=== PATIENT | male | born 1990 | race Caucasian/White ===

== ENCOUNTER 2020-09-10 11:14 | Outpatient (REF) | payer MEDICAID, SELFPAY | END 2020-09-10 11:15 | disposition home or self-care (01) | LOC: HO.LAB 11:14 | PROVIDERS: PCP Internal Medicine; Visit Provider Internal Medicine | DX: Z20.828 Contact with and (suspected) exposure to other viral communicable diseases (principal) | CPT/HCPCS: 87635 ==

== ENCOUNTER 2021-07-07 11:40 | Outpatient (REF) | payer MEDICAID, SELFPAY ==
[2021-07-07 12:18] LABS: COVID-19 Test Negative (Negative); IDNOW Serial# 08D9AD1C
== END 2021-07-07 11:41 | disposition home or self-care (01) ==
LOC: HO.LAB 11:40
PROVIDERS: PCP Internal Medicine; Visit Provider Internal Medicine
DX: Z20.822 Contact with and (suspected) exposure to COVID-19 (principal)
CPT/HCPCS: 36415; 87635; C9803

== ENCOUNTER 2022-03-18 16:13 | Outpatient (REF) | payer MEDICAID, SELFPAY ==
--- NOTE | ~2022-03-18 | CT_ITS ---
EXAMINATION: CT HEAD WITHOUT CONTRAST CLINICAL INFORMATION: Headaches. COMPARISON: CT brain 06/01/2019. TECHNIQUE: Contiguous axial imaging was performed from the skull base to vertex without intravenous administration of contrast. This CT examination was performed using dose optimization techniques as appropriate, variously including the following: *Automated exposure control *Adjustment of mA and/or kV according to patient size (this includes techniques or standardized protocols for targeted exams where dose is matched to indication/reason for exam; i.e. extremities or head) *Use of iterative reconstruction technique DLP: 721 mGy-cm. FINDINGS: There is no evidence of acute intracranial hemorrhage or territorial infarction. No abnormal mass effect or midline shift is seen. Dawn to white matter differentiation is well preserved. No extra-axial fluid collections are identified. The ventricles are normal in size. There is no abnormal attenuation within the brain parenchyma. The osseous structures and soft tissues are normal. The mastoid air cells and visualized portions of the paranasal sinuses are well aerated. CT/CT head/brain wo con IMPRESSION: No acute intracranial process seen.
== END 2022-03-18 16:14 | disposition home or self-care (01) ==
LOC: HO.CT 16:13
PROVIDERS: Visit Provider Internal Medicine
DX: R51.9 Headache, unspecified (principal)
CPT/HCPCS: 70450

== ENCOUNTER 2022-04-14 19:58 | Emergency (ER) | payer MEDICAID, SELFPAY ==
--- NOTE | ~2022-04-14 | XR_ITS ---
EXAMINATION: XR CHEST CLINICAL INFORMATION: Diminished breath sounds COMPARISON: Chest x-ray 05/15/2020 TECHNIQUE: Frontal view of the chest was obtained. 2105 hours FINDINGS: No significant abnormality is noted involving the heart, lungs, mediastinum, bony thorax or soft tissues. XR/XR chest 1V IMPRESSION: Unremarkable examination.
[2022-04-14 20:18] VITALS: PULSE 90; O2SAT 99
[2022-04-14 20:19] VITALS: BP 147/103; PULSE 88; RESP 20; TEMP 37.6; O2SAT 97; BMI 28.5
--- NOTE | 2022-04-14 20:24 | ED.PSYCH ---
HPI - Psych General Chief Complaint: ETOH/Substance Use <NISREEN Chung Last Filed: 04/15/22 01:22> Stated Complaint: substance abuse <NISREEN Chung Last Filed: 04/15/22 01:22> Time Seen by Provider: 04/14/22 20:24 <NISREEN Chung Last Filed: 04/15/22 01:22> Source: patient and EMS <NISREEN Chung Last Filed: 04/15/22 01:22> Mode of arrival: EMS <NISREEN Chung Last Filed: 04/15/22 01:22> Limitations: other (Patient appears to be under the influence of drugs, poor historian) <NISREEN Chung Last Filed: 04/15/22 01:22> History of Present Illness HPI Narrative: 31-year-old male history of polysubstance abuse presenting to the emergency department via ambulance, he tells me that his mother called EMS because he use PCP in cocaine today. He tells me he does did it to get high. He denies any trauma. he tells me he uses drugs occasionally. He denies suicidal and homicidal ideation. Patient denies trauma, head strike, loss of consciousness. Patient also denies chest pain, shortness of breath, fevers, chills, nausea, vomiting, abdominal pain, weakness, headache, dizziness, vision changes, upper respiratory infection. Patient is not seeking detox. He appears to be under the influence of drugs however he is answering questions appropriately. <NISREEN Chung Last Filed: 04/15/22 01:22> Onset (ago): day(s) (1) <NISREEN Chung Last Filed: 04/15/22 01:22> History of same: No <NISREEN Chung Last Filed: 04/15/22 01:22> Relieving factors: none <NISREEN Chung Last Filed: 04/15/22 01:22> Exacerbating factors: none <NISREEN Chung Last Filed: 04/15/22 01:22> Context: recent drug abuse <NISREEN Chung Last Filed: 04/15/22 01:22> Associated psychiatric symptoms: none <NISREEN Chung Last Filed: 04/15/22 01:22> Associated symptoms: denies other symptoms <NISREEN Chung Last Filed: 04/15/22 01:22> Treatments prior to arrival: none <NISREEN Chung Last Filed: 04/15/22 01:22> Related Data Home Medications: Previous Rx's Medication Instructions Recorded albuterol sulfate 90 mcg/actuation 2 inh INHALATION Q4-6H PRN #1 ea 04/15/22 breath activated powder inhaler azithromycin 250 mg tablet See Rx Instructions .ROUTE 04/15/22 .COMPLEX #6 tab prednisone 20 mg tablet 20 mg PO DAILY 5 Days #5 tab 04/15/22 <NISREEN Chung Last Filed: 04/15/22 01:22> Allergies/Adverse Reactions: Allergies Allergy/AdvReac Type Severity Reaction Status Date / Time pollen extracts Allergy Rash Verified 04/14/22 20:16 <NISREEN Chung Last Filed: 04/15/22 01:22> Review of Systems Review of Systems: Constitutional : No Fever, No Chills ENT/Mouth : No sore throat, No Rhinorrhea Eyes: No Eye Pain, No Swelling, No Redness Cardiovascular : No Chest Pain, No SOB Respiratory : No Cough, No Sputum Gastrointestinal : No Nausea, No Vomiting, No Diarrhea, No abdominal Pain Genitourinary : No Dysuria, No Hematuria Musculoskeletal : No joint pain, No Myalgias, No Joint Swelling Skin : No Skin Lesions, No rash Neuro : No Weakness, No Numbness Psych : No Anxiety, No Depression, No SI/HI/AH/VH Heme/Lymph: No Bruising, No Bleeding Endocrine : No Polyuria, No Polydipsia All other systems reviewed and are negative <NISREEN Chung Last Filed: 04/15/22 01:22> Yes all other systems are reviewed and are negative <NISREEN Chung Last Filed: 04/15/22 01:22> [facility] Past Medical History Attestation statement: The following information was validated with the patient. <NISREEN Chung - Last Filed: 04/15/22 01:22> Source: old records reviewed and nursing notes reviewed <NISREEN Chung - Last Filed: 04/15/22 01:22> Social History Social History: Social History Advance Directives: No Advance Directives Information Provided: No <NISREEN Chung - Last Filed: 04/15/22 01:22> Physical Exam Vital Signs: Vital Signs: Last Vital Signs Temp 98.4 F 04/15/22 00:04 Pulse 70 04/15/22 00:04 Resp 16 04/15/22 00:04 BP 139/83 04/15/22 00:04 Pulse Ox 98 04/15/22 00:04 BMI result Body Mass Index 28.5 HTN noted <NISREEN Chung - Last Filed: 04/15/22 01:22> Appearance: Alert.? Oriented X3.? No acute distress.? Head: Normocephalic, atraumatic, no step-offs or deformities Eyes: Pupils equal, round and reactive to light.? Extraocular movements intact. Neck: Normal inspection.? Neck supple.? CVS: Normal heart rate and rhythm.? Pulses normal.? Respiratory: No respiratory distress.? Breath sounds normal.? Abdomen: Soft and nontender.? Skin: Skin warm and dry.? Normal skin color.? Normal skin turgor.? Extremities: No lower extremity edema.? No calf ttp. 5/5 strength to bilateral upper and lower extremities Back: No midline tenderness, no C-spine tenderness, full range of motion Neuro: Oriented X 3.? No motor deficit.? No sensory deficit. CN 2-12 intact . Steady tandem gait with normal coordination, normal [id number]. Normal rapid alternating movements. Negative pronator drift. <NISREEN Chung - Last Filed: 04/15/22 01:22> Course Reevaluation(s) Reevaluation #1: Patient's CBC with slight leukocytosis likely reactive, patient's platelets elevated likely from dehydration. Patient's calcium elevated again consistent with dehydration. Ethanol negative. COVID negative. Chest x-ray is unremarkable. Plan at this time is to hydrate patient and repeat laboratory studies. 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 He says he is fine. Pending repeat laboratory studies , disposition pending improvement. <NISREEN Chung - Last Filed: 04/15/22:22> Time: 00:41 <NISREEN Chung - Last Filed: 04/15/22 01:22> Reevaluation #3: Laboratory study show an elevated white blood cell count, went to speak to patient, who is friend at the bedside, friend encouraging patient to be honest, patient tells me that he has had a non productive cough for a few days. He tells me is not coughing anything up. Patient is COVID negative. At this time he is saturating 100% on room air, no calf tenderness, lungs are clear, PERC negative unlikely that this is PE. Normal CXR, unlikley pna, likely bronchitis. Offered for patient to stay for antibiotics however he does not want to stay at this time. Patient wants to leave. Patient has a safe ride home. He is saturating 98% even after ambulation. Will discharge patient home on a Z-Victoriano, inhaler and steroids advised him to return with new or worsening symptoms. <NISREEN Chung - Last Filed: 04/15/22 01:22> Time: 01:15 <NISREEN Chung - Last Filed: 04/15/22 01:22> MDM - Psych MDM Narrative Medical decision making narrative: 2028 31-year-old male presents status post using PCP and cocaine, his mom called 911 because she was worried about him. Denies SI and HI. Tells me he just did this to get high. Denies medical complaints at this time. PE benign. Neuro exam nonfocal. Cerebellar function intact. Ambulating with steady gait. Alert and oriented x4. No pronator drift. Pupils equal round and reactive to light. Lungs clear. Regular rate and rhythm. Abdomen soft nontender nondistended. Plan- medical clearance then discharge. <NISREEN Chung - Last Filed: 04/15/22 01:22> Medical Records Attestation: I reviewed the patient's medical records. <NISREEN Chung - Last Filed: 04/15/22 01:22> Lab Data Attestation: I reviewed the patient's lab results. <NISREEN Chung - Last Filed: 04/15/22 01:22> Result diagrams: : 04/15/22 00:36 04/15/22 00:36 <NISREEN Chung - Last Filed: 04/15/22 01:22> Labs: Lab Results 04/14/22 04/14/22 04/14/22 Range/Units 20:48 20:48 20:48 WBC 15.3 H (4.8-10.8) X10*3/uL RBC 4.66 (4.60-5.80) X10*6/uL Hgb 14.1 (14.0-18.0) g/dl Hct 42.1 (42.0-52.0) % MCV 90.3 (80.0-98.0) fL MCH 30.3 (27.0-33.0) pg MCHC 33.5 (31.0-36.0) g/dl RDW 14.2 (11.0-16.0) % Plt Count 536 H (160-400) X10*3/uL MPV 9.9 (9.4-12.4) fL Immature Gran % (Auto) 0.3 (0.0-0.4) % Neut % (Auto) 47.8 (45-73) % Lymph % (Auto) 39.6 (20-40) % [place] % (Auto) 7.7 (2-11) % Eos % (Auto) 4.1 H (0-4) % Baso % (Auto) 0.5 (0-2) % Lymph # (Auto) 6.1 H (1.2-4.9) X10*3/uL [place] # (Auto) 1.2 (0.1-1.2) X10*3/uL Eos # (Auto) 0.6 H (0.0-0.4) X10*3/uL Baso # (Auto) 0.1 (0.0-0.2) X10*3/uL Abs Immat Gran (auto) 0.04 H (0.00-0.03) X10*3/uL Absolute Neuts (auto) 7.3 (2.0-8.3) x10*3/uL Absolute Nucleated RBC 0.000 (0.0-0.012) X10*3/uL Nucleated RBC % (auto) 0.0 (0.0-0.2) /100WBC Smear Tech's Comments VERIFIED Sodium 140 (135-145) mmol/L Potassium 4.0 (3.3-5.1) mmol/L Chloride 105 (96-108) mmol/L Carbon Dioxide 26 (22-29) mmol/L Anion Gap 13 (12-20) BUN 10 (9-16) mg/dL Creatinine 0.94 (0.5-1.4) mg/dL Estim Creat Clear Calc 138.8 Estimated GFR > 60 Random Glucose 90 (60-115) mg/dL Calcium 10.3 H (8.4-10.2) mg/dL Magnesium 2.4 (1.6-2.6) mg/dL Total Bilirubin 0.3 (0.0-1.0) mg/dL AST 27 (5-37) U/L ALT 35 (0-40) U/L Alkaline Phosphatase 104 (39-117) U/L Troponin I High Sens (<3.5-35.0) ng/L Total Protein 7.9 (6.5-8.0) g/dL Albumin 4.8 (3.5-5.0) g/dL Urine Color Urine Appearance Urine pH (5.0-8.0) Ur Specific [place] (1.005-1.025) Urine Protein (NEG-TRACE) MG/DL Urine Glucose (UA) (NEG) MG/DL Urine Ketones (NEG) MG/DL Urine Blood (NEG) Urine Nitrite (NEG) Ur Leukocyte Esterase (NEG) Urine RBC (0) /HPF Urine WBC (0-4) /HPF Ur Squamous Epith Cells /LPF Urine Bacteria /LPF Urine Mucus /LPF Urine Opiates Screen (Not Detect) Urine Fentanyl Screen (Not Detect) Ur Barbiturates Screen (Not Detect) Ur Phencyclidine Scrn (Not Detect) Ur Amphetamines Screen (Not Detect) U Benzodiazepines Scrn (Not Detect) Urine Cocaine Screen (Not Detect) U Marijuana (THC) Screen (Not Detect) Ethyl Alcohol mg/dL COVID-19 (CESARIO) Negative (Negative) COVID-19 Clin Com See Note 04/14/22 04/14/22 04/14/22 Range/Units 20:48 20:48 22:12 WBC (4.8-10.8) X10*3/uL RBC (4.60-5.80) X10*6/uL Hgb (14.0-18.0) g/dl Hct (42.0-52.0) % MCV (80.0-98.0) fL MCH (27.0-33.0) pg MCHC (31.0-36.0) g/dl RDW (11.0-16.0) % Plt Count (160-400) X10*3/uL MPV (9.4-12.4) fL Immature Gran % (Auto) (0.0-0.4) % Neut % (Auto) (45-73) % Lymph % (Auto) (20-40) % [place] % (Auto) (2-11) % Eos % (Auto) (0-4) % Baso % (Auto) (0-2) % Lymph # (Auto) (1.2-4.9) X10*3/uL [place] # (Auto) (0.1-1.2) X10*3/uL Eos # (Auto) (0.0-0.4) X10*3/uL Baso # (Auto) (0.0-0.2) X10*3/uL Abs Immat Gran (auto) (0.00-0.03) X10*3/uL Absolute Neuts (auto) (2.0-8.3) x10*3/uL Absolute Nucleated RBC (0.0-0.012) X10*3/uL Nucleated RBC % (auto) (0.0-0.2) /100WBC Smear Tech's Comments Sodium (135-145) mmol/L Potassium (3.3-5.1) mmol/L Chloride (96-108) mmol/L Carbon Dioxide (22-29) mmol/L Anion Gap (12-20) BUN (9-16) mg/dL Creatinine (0.5-1.4) mg/dL Estim Creat Clear Calc Estimated GFR Random Glucose (60-115) mg/dL Calcium (8.4-10.2) mg/dL Magnesium (1.6-2.6) mg/dL Total Bilirubin (0.0-1.0) mg/dL AST (5-37) U/L ALT (0-40) U/L Alkaline Phosphatase (39-117) U/L Troponin I High Sens < 3.5 (<3.5-35.0) ng/L Total Protein (6.5-8.0) g/dL Albumin (3.5-5.0) g/dL Urine Color YELLOW Urine Appearance CLEAR Urine pH 6.0 (5.0-8.0) Ur Specific [place] >= 1.030 H (1.005-1.025) Urine Protein 1+ H (NEG-TRACE) MG/DL Urine Glucose (UA) NEG (NEG) MG/DL Urine Ketones NEG (NEG) MG/DL Urine Blood 2+ H (NEG) Urine Nitrite NEG (NEG) Ur Leukocyte Esterase NEG (NEG) Urine RBC 10-14 H (0) /HPF Urine WBC 1-4 (0-4) /HPF Ur Squamous Epith Cells TRACE /LPF Urine Bacteria TRACE /LPF Urine Mucus 1+ /LPF Urine Opiates Screen (Not Detect) Urine Fentanyl Screen (Not Detect) Ur Barbiturates Screen (Not Detect) Ur Phencyclidine Scrn (Not Detect) Ur Amphetamines Screen (Not Detect) U Benzodiazepines Scrn (Not Detect) Urine Cocaine Screen (Not Detect) U Marijuana (THC) Screen (Not Detect) Ethyl Alcohol < 10 mg/dL COVID-19 (CESARIO) (Negative) COVID-19 Clin Com 04/14/22 04/15/22 04/15/22 Range/Units 22:12 00:36 00:36 WBC 16.2 H (4.8-10.8) X10*3/uL RBC 4.30 L (4.60-5.80) X10*6/uL Hgb 12.9 L (14.0-18.0) g/dl Hct 39.7 L (42.0-52.0) % MCV 92.3 (80.0-98.0) fL MCH 30.0 (27.0-33.0) pg MCHC 32.5 (31.0-36.0) g/dl RDW 14.3 (11.0-16.0) % Plt Count 473 H (160-400) X10*3/uL MPV 9.6 (9.4-12.4) fL Immature Gran % (Auto) 0.6 H (0.0-0.4) % Neut % (Auto) 51.2 (45-73) % Lymph % (Auto) 36.6 (20-40) % [place] % (Auto) 6.9 (2-11) % Eos % (Auto) 4.1 H (0-4) % Baso % (Auto) 0.6 (0-2) % Lymph # (Auto) 5.9 H (1.2-4.9) X10*3/uL [place] # (Auto) 1.1 (0.1-1.2) X10*3/uL Eos # (Auto) 0.7 H (0.0-0.4) X10*3/uL Baso # (Auto) 0.1 (0.0-0.2) X10*3/uL Abs Immat Gran (auto) 0.10 H (0.00-0.03) X10*3/uL Absolute Neuts (auto) 8.3 (2.0-8.3) x10*3/uL Absolute Nucleated RBC 0.000 (0.0-0.012) X10*3/uL Nucleated RBC % (auto) 0.0 (0.0-0.2) /100WBC Smear Tech's Comments Sodium 140 (135-145) mmol/L Potassium 4.3 (3.3-5.1) mmol/L Chloride 108 (96-108) mmol/L Carbon Dioxide 23 (22-29) mmol/L Anion Gap 13 (12-20) BUN 9 (9-16) mg/dL Creatinine 0.91 (0.5-1.4) mg/dL Estim Creat Clear Calc 143.4 Estimated GFR > 60 Random Glucose 111 (60-115) mg/dL Calcium 9.3 D (8.4-10.2) mg/dL Magnesium (1.6-2.6) mg/dL Total Bilirubin 0.4 (0.0-1.0) mg/dL AST 24 (5-37) U/L ALT 31 (0-40) U/L Alkaline Phosphatase 94 (39-117) U/L Troponin I High Sens (<3.5-35.0) ng/L Total Protein 6.8 (6.5-8.0) g/dL Albumin 4.2 (3.5-5.0) g/dL Urine Color Urine Appearance Urine pH (5.0-8.0) Ur Specific [place] (1.005-1.025) Urine Protein (NEG-TRACE) MG/DL Urine Glucose (UA) (NEG) MG/DL Urine Ketones (NEG) MG/DL Urine Blood (NEG) Urine Nitrite (NEG) Ur Leukocyte Esterase (NEG) Urine RBC (0) /HPF Urine WBC (0-4) /HPF Ur Squamous Epith Cells /LPF Urine Bacteria /LPF Urine Mucus /LPF Urine Opiates Screen Not Detected (Not Detect) Urine Fentanyl Screen Not Detected (Not Detect) Ur Barbiturates Screen Not Detected (Not Detect) Ur Phencyclidine Scrn POSITIVE H (Not Detect) Ur Amphetamines Screen Not Detected (Not Detect) U Benzodiazepines Scrn Not Detected (Not Detect) Urine Cocaine Screen POSITIVE H (Not Detect) U Marijuana (THC) Screen POSITIVE H (Not Detect) Ethyl Alcohol mg/dL COVID-19 (CESARIO) (Negative) COVID-19 Clin Com <NISREEN Chung - Last Filed: 04/15/22 01:22> Critical Care Time Critical Care Time Critical Care Time: No <NISREEN Chung Last Filed: 04/15/22 01:22> Discharge Plan Discharge Clinical Impression: Bronchitis, Cocaine abuse, PCP (phencyclidine) abuse <NISREEN Chung Last Filed: 04/15/22 01:22> Patient Disposition: Home, Self-Care <NISREEN Chung Last Filed: 04/15/22 01:22> Instructions: Cocaine Abuse (ED), Polysubstance Abuse (ED) <NISREEN Chung Last Filed: 04/15/22 01:22> Additional Instructions: Take your medications as prescribed. If you were prescribed antibiotics today, it is important that you take your medication to their entirety, do not skip any doses, do not finish them early. Follow-up with your primary care provider this week. Return to the emergency department with new or worsening symptoms. Such as fevers, chills, chest pain, shortness of breath, nausea, vomiting, dizziness, headache, vision changes, lethargy, suicidal ideation, homicidal ideation, anxiety, depression. In case of emergency call 911 We offered you detox however you refuse. Please stop using drugs as they can be very dangerous and aching kill you. We did provide you with outpatient detox/resources. Please read these papers we gave you, and consider calling to get help. I did attach [facility] number below. Be upset antibiotics your pharmacy, please take this as indicated, if you develop new or worsening symptoms he need to be re-evaluated by medical malpractice paralegal soon as possible. <NISREEN Chung - Last Filed: 04/15/22 01:22> Prescriptions: New albuterol sulfate 90 mcg/actuation aerosol powdr breath activated 2 inh inhalation Q4-6H PRN (Reason: shortness of breath or wheezing) Qty: 1 0RF azithromycin 250 mg tablet See Rx Instructions .ROUTE .COMPLEX Qty: 6 0RF Rx Instructions: For 250 mg dose pack: take 500 mg today (day 1), then 250 mg for 4 days (days 2-5) prednisone 20 mg tablet 20 mg PO DAILY 5 Days Qty: 5 0RF <NISREEN Chung - Last Filed: 04/15/22 01:22> [facility]errals[facility] [Provider Group] - 2 days <NISREEN Chung - Last Filed: 04/15/22 01:22> Stand Alone Forms: Work/School Release <NISREEN Chung - Last Filed: 04/15/22 01:22> Interventions: ED Discharge Assessment Last Done: 04/15/22 01:37 <NISREEN Chung Last Filed: 04/15/22 01:22> Discharge Date/Time: 04/15/22 01:53 <NISREEN Chung - Last Filed: 04/15/22 01:22>
--- NOTE | 2022-04-14 20:29 | ECG_ITS ---
Test Reason : PALPATATIONS Blood Pressure : / mmHG Vent. Rate : 065 BPM Atrial Rate : 065 BPM P-R Int : 162 ms QRS Dur : 086 ms QT Int : 384 ms P-R-T Axes : 027 038 033 degrees QTc Int : 399 ms Normal sinus rhythm Normal ECG When compared with ECG of 23-APR-2014 02:17, No significant change was found Referred By: Hillary Bryant Electronically Signed By:THAO LINARES MD
[2022-04-14 21:03] LABS: Basophils Absolute Auto 0.1 X10*3/uL (0.0-0.2); Basophils Percent Auto 0.5 % (0-2); Eosinophils Absolute Auto 0.6 X10*3/uL (0.0-0.4); Eosinophils Percent Auto 4.1 % (0-4); Hematocrit 42.1 % (42.0-52.0); Hemoglobin 14.1 g/dl (14.0-18.0); Imm Gran Abs Auto 0.04 X10*3/uL (0.00-0.03); Imm Gran Pct Auto 0.3 % (0.0-0.4); Lymphocytes Percent Auto 39.6 % (20-40); MANUAL DIFF FLAG SCAN; Mean Corpuscular HGB Conc 33.5 g/dl (31.0-36.0); Mean Corpuscular Hemoglobin 30.3 pg (27.0-33.0); Mean Corpuscular Volume 90.3 fL (80.0-98.0); Mean Platelet Volume 9.9 fL (9.4-12.4); Monocytes Absolute Auto 1.2 X10*3/uL (0.1-1.2); Monocytes Percent Auto 7.7 % (2-11); Neutrophils Absolute Auto 7.3 x10*3/uL (2.0-8.3); Neutrophils Percent Auto 47.8 % (45-73); Platelet Count 536 X10*3/uL (160-400); Red Blood Count 4.66 X10*6/uL (4.60-5.80); Red Cell Distribution Width 14.2 % (11.0-16.0); SCAN SMEAR FLAG 1; White Blood Count 15.3 X10*3/uL (4.8-10.8)
[2022-04-14 21:05] LABS: Lymphocytes Absolute Auto 6.1 X10*3/uL (1.2-4.9)
[2022-04-14 21:10] LABS: COVID-19 Test Negative (Negative); Ethanol < 10 mg/dL; IDNOW Serial# 16C4AD1C
[2022-04-14 21:13] LABS: Alanine Aminotransferase 35 U/L (0-40); Albumin Level 4.8 g/dL (3.5-5.0); Alkaline Phosphatase 104 U/L (39-117); Anion Gap 13 (12-20); Aspartate Amino Transferase 27 U/L (5-37); Bilirubin Total 0.3 mg/dL (0.0-1.0); Blood Urea Nitrogen 10 mg/dL (9-16); Calcium 10.3 mg/dL (8.4-10.2); Carbon Dioxide 26 mmol/L (22-29); Chloride 105 mmol/L (96-108); Creatinine Clr Calc Pharmacy 138.8; Estimated Glomerular Filt Rate > 60; Glucose Random 90 mg/dL (60-115); Magnesium 2.4 mg/dL (1.6-2.6); Sodium 140 mmol/L (135-145); Total Protein 7.9 g/dL (6.5-8.0)
[2022-04-14 21:19] LABS: Troponin-I High Sensitivity < 3.5 ng/L (<3.5-35.0)
[2022-04-14 21:28] LABS: SLIDE REVIEW VERIFIED
--- NOTE | 2022-04-14 21:41 | MHC.RECOVSUP ---
? Reason for consult:Recovery Support o Current location:[address] o Identified substance use concern:PCP, Cocaine - Support ? Intervention: o Community resources provided ? Plan: o o Patient to follow up with [facility] after discharge ? Additional information:Patient denies using anything, patient has not given a urine specimen, patient has asked to leave. patient did not want to engage in any conversation except asking to leave.
[2022-04-14 22:00] VITALS: BP 138/85; PULSE 62; RESP 16; TEMP 36.6; O2SAT 98
[2022-04-14] MEDS: 0.9 % Sodium Chloride 1,000 ML 999 ML IV ×2 (22:08→23:03)
[2022-04-14 22:17] LABS: Appearance Urine CLEAR; Color Urine YELLOW; Glucose Urine UA NEG (NEG); Leukocyte Esterase Urine NEG (NEG); Nitrite Urine NEG (NEG); Specific Gravity - Urine >= 1.030 (1.005-1.025); UACC Culture Trigger NO; Urine Blood 2+ (NEG); Urine Ketones NEG (NEG); Urine Protein 1+ MG/DL (NEG-TRACE)
[2022-04-14 22:28] LABS: Bacteria Urine TRACE /LPF; Mucus Urine 1+ /LPF; Squamous Epithelial Cell Urine TRACE /LPF
[2022-04-14 22:31] LABS: Amphetamine Screen Urine Not Detected (Not Detect); Barbiturates, Urine Not Detected (Not Detect); Benzodiazepines Screen Urine Not Detected (Not Detect); Cannabinoid Screen Urine POSITIVE (Not Detect); Cocaine Screen Urine POSITIVE (Not Detect); Fentanyl, urine Not Detected (Not Detect); Opiate Screen Urine Not Detected (Not Detect); Phencyclidine Screen Urine POSITIVE (Not Detect)
[2022-04-15 00:04] VITALS: BP 139/83; PULSE 70; RESP 16; TEMP 36.9; O2SAT 98
[2022-04-15 00:44] LABS: Basophils Absolute Auto 0.1 X10*3/uL (0.0-0.2); Basophils Percent Auto 0.6 % (0-2); Eosinophils Absolute Auto 0.7 X10*3/uL (0.0-0.4); Eosinophils Percent Auto 4.1 % (0-4); Hematocrit 39.7 % (42.0-52.0); Hemoglobin 12.9 g/dl (14.0-18.0); Imm Gran Pct Auto 0.6 % (0.0-0.4); Lymphocytes Absolute Auto 5.9 X10*3/uL (1.2-4.9); Lymphocytes Percent Auto 36.6 % (20-40); MANUAL DIFF FLAG SCAN; Mean Corpuscular HGB Conc 32.5 g/dl (31.0-36.0); Mean Corpuscular Volume 92.3 fL (80.0-98.0); Mean Platelet Volume 9.6 fL (9.4-12.4); Monocytes Absolute Auto 1.1 X10*3/uL (0.1-1.2); Monocytes Percent Auto 6.9 % (2-11); Neutrophils Absolute Auto 8.3 x10*3/uL (2.0-8.3); Neutrophils Percent Auto 51.2 % (45-73); Platelet Count 473 X10*3/uL (160-400); Red Cell Distribution Width 14.3 % (11.0-16.0); SCAN SMEAR FLAG 1; White Blood Count 16.2 X10*3/uL (4.8-10.8)
[2022-04-15 01:09] LABS: Alanine Aminotransferase 31 U/L (0-40); Albumin Level 4.2 g/dL (3.5-5.0); Alkaline Phosphatase 94 U/L (39-117); Anion Gap 13 (12-20); Aspartate Amino Transferase 24 U/L (5-37); Bilirubin Total 0.4 mg/dL (0.0-1.0); Blood Urea Nitrogen 9 mg/dL (9-16); Calcium 9.3 mg/dL (8.4-10.2); Carbon Dioxide 23 mmol/L (22-29); Chloride 108 mmol/L (96-108); Creatinine Clr Calc Pharmacy 143.4; Estimated Glomerular Filt Rate > 60; Glucose Random 111 mg/dL (60-115); Potassium 4.3 mmol/L (3.3-5.1); Sodium 140 mmol/L (135-145); Total Protein 6.8 g/dL (6.5-8.0)
== END 2022-04-15 01:53 | disposition home or self-care (01) ==
PROVIDERS: Physician Assistant; Emergency Provider Emergency Medicine
DX: F14.10 Cocaine abuse, uncomplicated (principal); F16.10 Hallucinogen abuse, uncomplicated; J40 Bronchitis, not specified as acute or chronic; R00.2 Palpitations; Z20.822 Contact with and (suspected) exposure to COVID-19
CPT/HCPCS: 36415; 71045; 80053; 80307; 81001; 82077; 83735; 84484; 85025; 87635; 93005; 96360; 99284

== ENCOUNTER 2023-05-24 | Outpatient (REF) | payer MEDICAID, SELFPAY ==
[2023-05-24 11:31] LABS: Basophils Absolute Auto 0.1 X10*3/uL (0.0-0.2); Basophils Percent Auto 0.5 % (0-2); Eosinophils Absolute Auto 0.4 X10*3/uL (0.0-0.4); Eosinophils Percent Auto 2.6 % (0-4); Hematocrit 44.7 % (42.0-52.0); Hemoglobin 14.6 g/dl (14.0-18.0); Imm Gran Abs Auto 0.04 X10*3/uL (0.00-0.03); Imm Gran Pct Auto 0.3 % (0.0-0.4); Lymphocytes Percent Auto 43.2 % (20-40); MANUAL DIFF FLAG SCAN; Mean Corpuscular HGB Conc 32.7 g/dl (31.0-36.0); Mean Corpuscular Hemoglobin 28.6 pg (27.0-33.0); Mean Corpuscular Volume 87.6 fL (80.0-98.0); Mean Platelet Volume 10.7 fL (9.4-12.4); Monocytes Absolute Auto 1.1 X10*3/uL (0.1-1.2); Monocytes Percent Auto 8.1 % (2-11); Neutrophils Absolute Auto 6.4 x10*3/uL (2.0-8.3); Neutrophils Percent Auto 45.3 % (45-73); Platelet Count 577 X10*3/uL (160-400); Red Cell Distribution Width 13.8 % (11.0-16.0); SCAN SMEAR FLAG 1; White Blood Count 14.2 X10*3/uL (4.8-10.8)
[2023-05-24 11:32] LABS: Lymphocytes Absolute Auto 6.1 X10*3/uL (1.2-4.9)
[2023-05-24 12:14] LABS: SLIDE REVIEW VERIFIED
[2023-05-24 12:22] LABS: Alanine Aminotransferase 100 U/L (0-40); Albumin Level 4.8 g/dL (3.5-5.0); Alkaline Phosphatase 97 U/L (39-117); Anion Gap 16 (12-20); Aspartate Amino Transferase 44 U/L (5-37); Bilirubin Total 0.4 mg/dL (0.0-1.0); Blood Urea Nitrogen 11 mg/dL (9-16); Calcium 10.2 mg/dL (8.4-10.2); Carbon Dioxide 18 mmol/L (22-29); Chloride 110 mmol/L (96-108); Cholesterol 263 mg/dL; Estimated Glomerular Filt Rate > 60; Glucose Random 102 mg/dL (60-115); HDL Cholesterol 33 mg/dL; LDL Cholesterol Calculated 189 mg/dl; Potassium 3.9 mmol/L (3.3-5.1); Sodium 140 mmol/L (135-145); Total Protein 8.2 g/dL (6.5-8.0); Triglycerides 209 mg/dL
[2023-05-24 12:36] LABS: Syphilis Screen Nonreactive (Nonreactive)
[2023-05-26 20:53] LABS: TS Negative Control Passed; TS Panel A 1; TS Panel B 0; TS Positive Control Passed; TSpotTB Negative (Negative)
[2023-05-27 09:48] LABS: Absolute CD3 Count 3882 cells/uL (840-3060); Absolute CD4 Count 1893 cells/uL (490-1740); Absolute CD8 Count 2048 cells/uL (180-1170); Absolute Lymphocytes 5679 cells/uL (850-3900); CD4 CD8 Ratio 0.92 (0.86-5.00); Percent CD3 Cells 68 % (57-85); Percent CD4 Cells 33 % (30-61); Percent CD8 Cells 36 % (12-42)
[2023-05-27 12:44] LABS: HIV RNA PCR Qn Copies NOT DETECTED copies/mL (NOT DETECTED); HIV RNA PCR Qn Log Copies NOT DETECTED (NOT DETECTED)
== END 2023-05-24 00:01 | disposition home or self-care (01) ==
LOC: HO.HHCL
PROVIDERS: Visit Provider Internal Medicine
DX: Z21 Asymptomatic human immunodeficiency virus [HIV] infection status (principal)
CPT/HCPCS: 36415; 80053; 80061; 85025; 86359; 86360; 86481; 86780; 87536

== ENCOUNTER 2023-06-01 12:27 | Outpatient (REF) | payer MEDICAID, SELFPAY ==
[2023-06-01 13:33] LABS: MANUAL DIFF FLAG NO
[2023-06-01 13:54] LABS: Basophils Absolute Auto 0.1 X10*3/uL (0.0-0.2); Basophils Percent Auto 0.4 % (0-2); Eosinophils Absolute Auto 0.2 X10*3/uL (0.0-0.4); Eosinophils Percent Auto 1.2 % (0-4); Hemoglobin 14.4 g/dl (14.0-18.0); Imm Gran Abs Auto 0.06 X10*3/uL (0.00-0.03); Imm Gran Pct Auto 0.4 % (0.0-0.4); Lymphocytes Absolute Auto 4.6 X10*3/uL (1.2-4.9); Lymphocytes Percent Auto 28.4 % (20-40); Mean Corpuscular HGB Conc 32.7 g/dl (31.0-36.0); Mean Corpuscular Hemoglobin 28.7 pg (27.0-33.0); Mean Corpuscular Volume 87.6 fL (80.0-98.0); Mean Platelet Volume 10.6 fL (9.4-12.4); Monocytes Percent Auto 6.1 % (2-11); Neutrophils Absolute Auto 10.2 x10*3/uL (2.0-8.3); Neutrophils Percent Auto 63.5 % (45-73); Platelet Count 566 X10*3/uL (160-400); Red Blood Count 5.02 X10*6/uL (4.60-5.80); White Blood Count 16.1 X10*3/uL (4.8-10.8)
[2023-06-01 14:41] LABS: Cholesterol 251 mg/dL; HDL Cholesterol 37 mg/dL; LDL Cholesterol Calculated 181 mg/dl; Triglycerides 166 mg/dL
[2023-06-01 14:42] LABS: Alanine Aminotransferase 129 U/L (0-40); Alkaline Phosphatase 94 U/L (39-117); Anion Gap 15 (12-20); Aspartate Amino Transferase 52 U/L (5-37); Bilirubin Total 0.3 mg/dL (0.0-1.0); Blood Urea Nitrogen 12 mg/dL (9-16); Calcium 10.3 mg/dL (8.4-10.2); Carbon Dioxide 23 mmol/L (22-29); Chloride 102 mmol/L (96-108); Estimated Glomerular Filt Rate > 60; Glucose Random 94 mg/dL (60-115); Potassium 3.7 mmol/L (3.3-5.1); Sodium 136 mmol/L (135-145); Total Protein 8.4 g/dL (6.5-8.0)
[2023-06-01 15:24] LABS: Reflex LDLD? No
[2023-06-02 08:26] LABS: Syphilis Screen Nonreactive (Nonreactive)
[2023-06-03 15:03] LABS: HIV RNA PCR Qn Copies NOT DETECTED copies/mL (NOT DETECTED); HIV RNA PCR Qn Log Copies NOT DETECTED (NOT DETECTED)
[2023-06-04 00:44] LABS: TS Negative Control Passed; TS Panel A 0; TS Panel B 1; TS Positive Control Passed; TSpotTB Negative (Negative)
[2023-06-05 13:19] LABS: Absolute CD3 Count 2843 cells/uL (840-3060); Absolute CD4 Count 1538 cells/uL (490-1740); Absolute CD8 Count 1389 cells/uL (180-1170); Absolute Lymphocytes 4352 cells/uL (850-3900); CD4 CD8 Ratio 1.11 (0.86-5.00); Percent CD3 Cells 65 % (57-85); Percent CD4 Cells 35 % (30-61); Percent CD8 Cells 32 % (12-42)
== END 2023-06-01 12:28 | disposition home or self-care (01) ==
LOC: HO.HHCL 12:27
PROVIDERS: Visit Provider Internal Medicine
DX: Z21 Asymptomatic human immunodeficiency virus [HIV] infection status (principal)
CPT/HCPCS: 36415; 80053; 80061; 85025; 86359; 86360; 86481; 86592; 86780; 87536

== ENCOUNTER 2023-10-24 11:08 | Outpatient (REF) | payer MEDICAID, SELFPAY ==
[2023-10-24 13:58] LABS: Basophils Absolute Auto 0.1 X10*3/uL (0.0-0.2); Basophils Percent Auto 0.6 % (0-2); Eosinophils Absolute Auto 0.3 X10*3/uL (0.0-0.4); Eosinophils Percent Auto 2.5 % (0-4); Hematocrit 45.1 % (42.0-52.0); Hemoglobin 14.6 g/dl (14.0-18.0); Imm Gran Abs Auto 0.06 X10*3/uL (0.00-0.03); Imm Gran Pct Auto 0.5 % (0.0-0.4); Lymphocytes Absolute Auto 5.9 X10*3/uL (1.2-4.9); Lymphocytes Percent Auto 46.6 % (20-40); MANUAL DIFF FLAG SCAN; Mean Corpuscular HGB Conc 32.4 g/dl (31.0-36.0); Mean Corpuscular Hemoglobin 28.5 pg (27.0-33.0); Mean Corpuscular Volume 87.9 fL (80.0-98.0); Mean Platelet Volume 10.3 fL (9.4-12.4); Monocytes Absolute Auto 0.9 X10*3/uL (0.1-1.2); Monocytes Percent Auto 7.1 % (2-11); Neutrophils Absolute Auto 5.4 x10*3/uL (2.0-8.3); Neutrophils Percent Auto 42.7 % (45-73); Platelet Count 526 X10*3/uL (160-400); Red Blood Count 5.13 X10*6/uL (4.60-5.80); SCAN SMEAR FLAG 1; White Blood Count 12.6 X10*3/uL (4.8-10.8)
[2023-10-24 14:24] LABS: Cholesterol 253 mg/dL (<200); HDL Cholesterol 47 mg/dL (>40); LDL Cholesterol Calculated 184 mg/dL (<100); Triglycerides 113 mg/dL (<150)
[2023-10-24 14:29] LABS: SLIDE REVIEW VERIFIED
[2023-10-24 14:58] LABS: Reflex LDLD? No
[2023-10-24 15:06] LABS: Alanine Aminotransferase 179 U/L (0-40); Albumin Level 4.5 g/dL (3.5-5.0); Alkaline Phosphatase 100 U/L (39-117); Anion Gap 14 (12-20); Aspartate Amino Transferase 102 U/L (5-37); Bilirubin Total 0.4 mg/dL (0.0-1.0); Blood Urea Nitrogen 14 mg/dL (9-16); Calcium 9.8 mg/dL (8.4-10.2); Carbon Dioxide 18 mmol/L (22-29); Chloride 109 mmol/L (96-108); Estimated Glomerular Filt Rate > 60; Glucose Random 99 mg/dL (60-115); Potassium 4.4 mmol/L (3.3-5.1); Sodium 137 mmol/L (135-145); Total Protein 7.8 g/dL (6.5-8.0)
[2023-10-25 08:55] LABS: ~HepC Num1 0.14 S/CO (0.00-0.79); ~Hepatitis C Antibody Nonreactive (Nonreactive)
[2023-10-25 10:49] LABS: Absolute CD3 Count 4258 cells/uL (840-3060); Absolute CD4 Count 2197 cells/uL (490-1740); Absolute CD8 Count 2113 cells/uL (180-1170); Absolute Lymphocytes 6484 cells/uL (850-3900); CD4 CD8 Ratio 1.04 (0.86-5.00); Percent CD3 Cells 66 % (57-85); Percent CD4 Cells 34 % (30-61); Percent CD8 Cells 33 % (12-42)
[2023-10-25 15:49] LABS: RPR Rapid Plasma Reagin NON-REACTIVE (NON-REACTIVE)
[2023-10-26 15:27] LABS: HIV RNA PCR Qn Copies 27 copies/mL (NOT DETECTED); HIV RNA PCR Qn Log Copies 1.43 (NOT DETECTED)
[2023-10-27 09:08] LABS: TS Negative Control Passed; TS Panel A 1; TS Panel B 0; TS Positive Control Passed; TSpotTB Negative (Negative)
== END 2023-10-24 11:09 | disposition home or self-care (01) ==
LOC: HO.HHCL 11:08
PROVIDERS: Visit Provider Internal Medicine
DX: Z11.1 Encounter for screening for respiratory tuberculosis (principal); B20 Human immunodeficiency virus [HIV] disease
CPT/HCPCS: 36415; 80053; 80061; 85025; 86359; 86360; 86481; 86592; 86803; 87536

== ENCOUNTER 2023-11-28 11:25 | Outpatient (REF) | payer MEDICAID, SELFPAY ==
[2023-11-29 08:18] LABS: Hepatitis A Antibody IgG REACTIVE (Nonreactive); Hepatitis A Antibody IgM 0.24 Index (0-0.79); ~Hepatitis A Antibody IgM Nonreactive (Nonreactive)
[2023-11-29 08:25] LABS: HBS Num1 3.18 mIU/mL (0-7.99); HBc Num1 0.14 S/CO (0.00-0.79); HBsAGNum1 0.33 S/CO (0.00-0.99); Hepatitis B Core Antibody Nonreactive (Nonreactive); Hepatitis B Surface Antigen Negative (Negative); ~Hepatitis B Surface Antibody NONREACTIVE (Nonreactive)
[2023-11-29 08:26] LABS: HBc Num1 0.15 S/CO (0.00-0.79); Hepatitis B Core Antibody Nonreactive (Nonreactive); ~Hepatitis B Surface Antibody NONREACTIVE (Nonreactive)
[2023-12-07 11:53] LABS: Testosterone, Total 253 ng/dL (250-1100)
== END 2023-11-28 11:26 | disposition home or self-care (01) ==
LOC: HO.HHCL 11:25
PROVIDERS: Emergency Medicine; Visit Provider Internal Medicine
DX: R68.82 Decreased libido (principal); R79.89 Other specified abnormal findings of blood chemistry; F11.20 Opioid dependence, uncomplicated
CPT/HCPCS: 36415; 84402; 84403; 86704; 86706; 86708; 86709; 87340

== ENCOUNTER 2023-12-13 15:24 | Outpatient (REF) | payer MEDICAID, SELFPAY ==
[2023-12-13 16:19] LABS: Hematocrit 42.9 % (42.0-52.0); Hemoglobin 14.3 g/dl (14.0-18.0); Mean Corpuscular HGB Conc 33.3 g/dl (31.0-36.0); Mean Corpuscular Hemoglobin 28.3 pg (27.0-33.0); Mean Platelet Volume 10.1 fL (9.4-12.4); Platelet Count 569 X10*3/uL (160-400); Red Blood Count 5.05 X10*6/uL (4.60-5.80); Red Cell Distribution Width 13.8 % (11.0-16.0); White Blood Count 15.1 X10*3/uL (4.8-10.8)
[2023-12-13 16:43] LABS: SLIDE REVIEW MANUAL DIFF
[2023-12-13 16:44] LABS: Atypical Lymph Absolute Manual 0.3 x10*3/uL; Atypical Lymphs Percent Manual 2 % (0-6); Eosinophils Absolute Manual 0.6 X10*3/uL (0.0-0.4); Eosinophils Percent Manual 4 % (0-4); Lymphocytes Absolute Manual 3.8 X10*3/uL (1.2-4.9); Lymphocytes Percent Manual 25 % (20-40); Monocytes Absolute Manual 0.9 X10*3/uL (0.1-1.2); Monocytes Percent Manual 6 % (2-11); Neutrophils Percent Manual 63 % (45-73); Platelet Estimate NORMAL (NORMAL); Platelet Morphology Comment NORMAL; RBC Morphology NORMAL
[2023-12-13 16:45] LABS: Neutrophils Absolute Manual 9.5 X10*3/uL (2.0-8.3)
[2023-12-13 16:56] LABS: Alanine Aminotransferase 167 U/L (0-40); Albumin Level 4.8 g/dL (3.5-5.0); Alkaline Phosphatase 117 U/L (39-117); Anion Gap 13 (12-20); Aspartate Amino Transferase 87 U/L (5-37); Bilirubin Direct 0.2 mg/dL (0.0-0.5); Bilirubin Total 0.5 mg/dL (0.0-1.0); Blood Urea Nitrogen 14 mg/dL (9-16); Calcium 9.8 mg/dL (8.4-10.2); Carbon Dioxide 21 mmol/L (22-29); Chloride 110 mmol/L (96-108); Estimated Glomerular Filt Rate > 60; Glucose Random 90 mg/dL (60-115); Potassium 3.9 mmol/L (3.3-5.1); Sodium 140 mmol/L (135-145); Total Protein 8.4 g/dL (6.5-8.0)
[2023-12-14 04:14] LABS: ~Hepatitis C Antibody Nonreactive (Nonreactive)
[2023-12-15 10:34] LABS: Absolute CD3 Count 3701 cells/uL (840-3060); Absolute CD4 Count 1932 cells/uL (490-1740); Absolute CD8 Count 1812 cells/uL (180-1170); Absolute Lymphocytes 5975 cells/uL (850-3900); CD4 CD8 Ratio 1.07 (0.86-5.00); Percent CD3 Cells 62 % (57-85); Percent CD4 Cells 32 % (30-61); Percent CD8 Cells 30 % (12-42)
[2023-12-15 14:22] LABS: HIV RNA PCR Qn Copies 49 copies/mL (NOT DETECTED); HIV RNA PCR Qn Log Copies 1.69 (NOT DETECTED)
== END 2023-12-13 15:25 | disposition home or self-care (01) ==
LOC: HO.HHCL 15:24
PROVIDERS: Visit Provider Internal Medicine
DX: Z21 Asymptomatic human immunodeficiency virus [HIV] infection status (principal)
CPT/HCPCS: 36415; 80053; 82248; 85007; 85027; 86359; 86360; 86803; 87536

== ENCOUNTER 2024-03-10 12:19 | Emergency (ER) | payer MEDICAID, SELFPAY ==
[2024-03-10 12:34] VITALS: BP 147/93; PULSE 82; RESP 20; TEMP 36.2; O2SAT 97; BMI 31.0
[2024-03-10 12:40] VITALS: BP 147/93; PULSE 82; RESP 20; TEMP 36.2; O2SAT 97
--- NOTE | 2024-03-10 12:41 | ED_ITS ---
HPI - General Adult General Chief complaint: General Medical Stated complaint: Allergic reaction ? Time Seen by Provider: 03/10/24 12:38 Source: patient Mode of arrival: ambulatory Limitations: no limitations History of Present Illness HPI narrative: RME: 33 yold male presents to the ED for itchy rash on lower abdomen and right buttock for the past 4 days. patient states no fever, chills, swelling of lips/tongue/face/boni, chest pain, shortness of breath, recent long travel, or animal bites. Related Data Previous Rx's ?Medication ?Instructions ?Recorded albuterol sulfate 90 mcg/actuation 2 inh inhalation Q4-6H PRN 04/15/22 breath activated powder inhaler shortness of breath or wheezing #1 ea azithromycin 250 mg tablet See Rx Instructions PO .COMPLEX #6 04/15/22 tabs prednisone 20 mg tablet 20 mg PO DAILY 5 days #5 tabs 04/15/22 diphenhydramine HCl 25 mg capsule 25 mg PO TID PRN allergic reaction 03/10/24 (Benadryl) 7 days #21 caps famotidine 20 mg tablet (Pepcid) 20 mg PO BID 7 days #14 tabs 03/10/24 hydrocortisone 1 % topical cream 1 appl topical BID PRN rash 2 03/10/24 weeks #28.4 grams prednisone 20 mg tablet 40 mg (2 x 20 mg) PO DAILY 5 days 03/10/24 #10 tabs Allergies Allergy/AdvReac Type Severity Reaction Status Date / Time pollen extracts Allergy Rash Verified 03/10/24 12:35 Review of Systems 2 Review of Systems: itchy rash Yes all other systems are reviewed and are negative [facility] Social History Social History Advance Directives: No Advance Directives Information Provided: No Do you have a plan to hurt others: No Plan Physical Exam ED Vital Signs: Vital Signs - 24 hr 03/10/24 12:34 03/10/24 12:40 Temperature 97.1 F 97.1 F Pulse Rate 82 82 Respiratory Rate 20 20 Blood Pressure 147/93 H 147/93 H Pulse Oximetry 97 97 Oxygen Delivery Method Room Air Room Air BMI result Body Mass Index 31.0 Const General: cooperative, healthy appearing, comfortable, no acute distress, well developed, alert, awake and Physically active Orientation/consciousness: oriented to person, oriented to place, oriented to time and patient oriented x3 HENAK Other: Negative for swelling of lips, tongue, or face. negative for drooling, change in voice, or stridor. uvula is normal Head: Yes normal to inspection, Yes No palpable skull fracture present, Yes normocephalic and Yes atraumatic Throat: Yes posterior oropharynx normal, Yes tonsils normal and Yes uvula midline Eyes General: appearance normal, both eyes and all related structures Neck Neck: Yes normal visual inspection, Yes full ROM, Yes no lymphadenopathy, Yes no meningeal signs, Yes trachea midline, Yes supple, No anterior neck swelling and No tender Chest Chest palpation & inspection: normal inspection of the chest and normal palpation of entire chest wall Resp Effort & Inspection: normal respiratory effort and able to speak in complete sentences Auscultation: clear to auscultation bilaterally Cardio Jugular venous distension: no JVD Heart sounds: S1 normal heart sound present and S2 normal heart sound present GI Inspection: Yes normal to inspection Palpation (GI): Soft to palpation, not firm, nontender, no guarding and not rigid Abdomen image: 2 1. positive for dermaitits uticaria rash. negative for warmth/tenderness/swellig/pus discharge or foul odor General: No CVA tenderness and Yes no CVA tenderness Back/Spine/Pelvis Back: no CVA tenderness, No CVA tenderness and No back tenderness Skin General skin exam: no rashes or lesions noted and elasticity normal Full body images: 2 1. Dermatitis uticaria rash. Negative for abscess, fluctuance, erythema, or mass Neuro General: oriented to person, oriented to place, oriented to time, patient oriented x3, gait normal, tone normal, moves all extremities, Normal light touch and pain sensation, no meningeal signs, no focal motor deficits, CN's II-XI intact bilaterally and normal sensation to monofilament Extrem General: Yes normal to inspection, Yes full ROM and Yes capillary refill normal Psych Appearance: grossly normal, well kempt and not disheveled Medical Decision Making Medical Decision Making MDM Narrative: RME: 33 yold male presetns to the ED for itchy rash on abdomen and buttock. NEgative for sign of anyphalysuisi Discharge Plan Discharge Clinical Impression: Allergic reaction, Dermatitis Patient Disposition: Home, Self-Care Instructions: General Allergic Reaction (ED), Dermatitis (ED) Additional Instructions: Return to the ED immediately for any worsening rash, pus discharge, foul odor, erythema, pain, lip swelling, tongue swelling, chest pain, shortness of breath, or any other concerning symptoms. Recommend follow-up with primary care provider Prescriptions: New diphenhydramine HCl [Benadryl] 25 mg capsule 25 mg PO TID PRN (Reason: allergic reaction) 7 Days Qty: 21 0RF prednisone 20 mg tablet 40 mg PO DAILY 5 Days Qty: 10 0RF famotidine [Pepcid] 20 mg tablet 20 mg PO BID 7 Days Qty: 14 0RF hydrocortisone 1 % cream 1 appl topical BID PRN (Reason: rash) 14 Days Qty: 28.4 0RF No Action albuterol sulfate 90 mcg/actuation aerosol powdr breath activated 2 inh inhalation Q4-6H PRN (Reason: shortness of breath or wheezing) Qty: 1 0RF azithromycin 250 mg tablet See Rx Instructions .ROUTE .COMPLEX Qty: 6 0RF Rx Instructions: For 250 mg dose pack: take 500 mg today (day 1), then 250 mg for 4 days (days 2-5) prednisone 20 mg tablet 20 mg PO DAILY 5 Days Qty: 5 0RF Interventions: ED Discharge Assessment Last Done: 03/10/24 12:40 Discharge Date/Time: 03/10/24 14:46 Print Language: German
== END 2024-03-10 14:46 | disposition home or self-care (01) ==
PROVIDERS: Emergency Provider Student in an Organized Health Care Education/Training Program; PCP Internal Medicine
DX: L23.9 Allergic contact dermatitis, unspecified cause (principal)
CPT/HCPCS: 99282; 99283

== ENCOUNTER 2024-04-15 15:55 | Outpatient (REF) | payer MEDICAID, SELFPAY ==
[2024-04-18 12:44] LABS: Codeine, Ur NEGATIVE; Hydrocodone, Ur NEGATIVE; Norhydrocodone, Ur NEGATIVE; Noroxycodone, Ur NEGATIVE
[2024-04-18 12:45] LABS: Hydromorphone, Ur NEGATIVE; Morphine, Ur NEGATIVE; Oxycodone, Ur NEGATIVE; Oxymorphone, Ur NEGATIVE
== END 2024-04-15 15:56 | disposition home or self-care (01) ==
LOC: HO.HHCLNP 15:55
PROVIDERS: Visit Provider Emergency Medicine
DX: F11.20 Opioid dependence, uncomplicated (principal)
CPT/HCPCS: 80365; G0480

== ENCOUNTER 2024-04-18 15:31 | Outpatient (REF) | payer MEDICAID, SELFPAY | END 2024-04-18 15:32 | disposition home or self-care (01) | LOC: HO.HHCL 15:31 | PROVIDERS: Visit Provider Internal Medicine | DX: Z13.89 Encounter for screening for other disorder (principal) ==

== ENCOUNTER 2024-05-20 12:04 | Outpatient (REF) | payer MEDICAID, SELFPAY ==
[2024-05-20 14:07] LABS: Basophils Absolute Auto 0.1 X10*3/uL (0.0-0.2); Basophils Percent Auto 0.5 % (0-2); Eosinophils Absolute Auto 0.3 X10*3/uL (0.0-0.4); Eosinophils Percent Auto 1.6 % (0-4); Hematocrit 44.7 % (42.0-52.0); Hemoglobin 14.8 g/dl (14.0-18.0); Imm Gran Abs Auto 0.09 X10*3/uL (0.00-0.03); Imm Gran Pct Auto 0.5 % (0.0-0.4); Lymphocytes Absolute Auto 5.9 X10*3/uL (1.2-4.9); Lymphocytes Percent Auto 35.1 % (20-40); MANUAL DIFF FLAG SCAN; Mean Corpuscular HGB Conc 33.1 g/dl (31.0-36.0); Mean Corpuscular Hemoglobin 29.7 pg (27.0-33.0); Mean Corpuscular Volume 89.6 fL (80.0-98.0); Mean Platelet Volume 9.8 fL (9.4-12.4); Monocytes Absolute Auto 1.3 X10*3/uL (0.1-1.2); Monocytes Percent Auto 7.8 % (2-11); Neutrophils Absolute Auto 9.2 x10*3/uL (2.0-8.3); Neutrophils Percent Auto 54.5 % (45-73); Platelet Count 537 X10*3/uL (160-400); Red Blood Count 4.99 X10*6/uL (4.60-5.80); Red Cell Distribution Width 16.1 % (11.0-16.0); SCAN SMEAR FLAG 1; White Blood Count 16.8 X10*3/uL (4.8-10.8)
[2024-05-20 14:36] LABS: SLIDE REVIEW VERIFIED
[2024-05-20 15:09] LABS: Alanine Aminotransferase 34 U/L (0-40); Albumin Level 4.7 g/dL (3.5-5.0); Alkaline Phosphatase 87 U/L (39-117); Anion Gap 12 (12-20); Aspartate Amino Transferase 30 U/L (5-37); Bilirubin Total 0.5 mg/dL (0.0-1.0); Blood Urea Nitrogen 10 mg/dL (9-16); Calcium 9.8 mg/dL (8.4-10.2); Carbon Dioxide 24 mmol/L (22-29); Chloride 108 mmol/L (96-108); Estimated Glomerular Filt Rate > 60; Glucose Random 89 mg/dL (60-115); Sodium 140 mmol/L (135-145)
[2024-05-21 14:28] LABS: HIV RNA PCR Qn Copies 25 copies/mL (NOT DETECTED)
[2024-05-22 06:38] LABS: RPR Rapid Plasma Reagin NON-REACTIVE (NON-REACTIVE)
[2024-05-23 18:30] LABS: Absolute CD3 Count 4105 cells/uL (840-3060); Absolute CD4 Count 2251 cells/uL (490-1740); Absolute CD8 Count 1913 cells/uL (180-1170); Absolute Lymphocytes 6079 cells/uL (850-3900); CD4 CD8 Ratio 1.18 (0.86-5.00); Percent CD3 Cells 68 % (57-85); Percent CD4 Cells 37 % (30-61); Percent CD8 Cells 31 % (12-42)
== END 2024-05-20 12:05 | disposition home or self-care (01) ==
LOC: HO.HHCL 12:04
PROVIDERS: Visit Provider Internal Medicine
DX: Z21 Asymptomatic human immunodeficiency virus [HIV] infection status (principal)
CPT/HCPCS: 36415; 80053; 85025; 86359; 86360; 86592; 87536

== ENCOUNTER 2024-05-26 19:45 | Emergency (ER) | payer MEDICAID, SELFPAY ==
[2024-05-26 19:53] VITALS: BP 162/99; PULSE 76; RESP 16; TEMP 37; O2SAT 98; BMI 29.9
[2024-05-26 22:23] VITALS: BP 156/106; PULSE 67; RESP 18; TEMP 36.4; O2SAT 98
--- NOTE | 2024-05-26 22:39 | PC.NURSE ---
Pt being disruptive and rude to staff members, demanding that he be seen now pt and pt GF redirected multiple times, rights gone over and that he has the right to leave if he does not want to wait for the provider. Pt given ice back at this time, offered other non-medication pain support. Pt seems to be waiting at this time for provider.
--- NOTE | 2024-05-26 23:05 | ED_ITS ---
HPI - General Adult General Chief complaint: Dental/Oral Stated complaint: left tooth bottom Time Seen by Provider: 05/26/24 22:56 Source: patient, RN notes reviewed and old records reviewed Mode of arrival: ambulatory Limitations: no limitations History of Present Illness ED Provider: Roland CAVAZOS narrative: 33-year-old male presents for evaluation of dental pain. He complains of pain to his left lower molar. The pain started a couple hours prior to coming in. He is denies any dental trauma. He is sensitive to hot and cold temperatures. Denies any facial swelling or difficulty swallowing Related Data Previous Rx's ?Medication ?Instructions ?Recorded albuterol sulfate 90 mcg/actuation 2 inh inhalation Q4-6H PRN 04/15/22 breath activated powder inhaler shortness of breath or wheezing #1 ea azithromycin 250 mg tablet See Rx Instructions PO .COMPLEX #6 04/15/22 tabs prednisone 20 mg tablet 20 mg PO DAILY 5 days #5 tabs 04/15/22 diphenhydramine HCl 25 mg capsule 25 mg PO TID PRN allergic reaction 03/10/24 (Benadryl) 7 days #21 caps famotidine 20 mg tablet (Pepcid) 20 mg PO BID 7 days #14 tabs 03/10/24 hydrocortisone 1 % topical cream 1 appl topical BID PRN rash 2 03/10/24 weeks #28.4 grams prednisone 20 mg tablet 40 mg (2 x 20 mg) PO DAILY 5 days 03/10/24 #10 tabs amoxicillin 875 mg-potassium 1 tab PO Q12H #14 tabs 05/26/24 clavulanate 125 mg tablet tramadol 50 mg tablet 50 mg PO Q6H PRN pain #10 tabs 05/26/24 Allergies Allergy/AdvReac Type Severity Reaction Status Date / Time pollen extracts Allergy Rash Verified 05/26/24 19:57 Review of Systems Constitutional: Constitutional: Denies body ache(s), Denies chills and Denies headache(s) Eyes: Eyes: Denies blurry vision ENT: Denies headache(s) and Reports mouth pain Neurologic: Denies headache(s) [facility] Social History Social History Advance Directives: No Advance Directives Information Provided: No Physical Exam ED Vital Signs: Vital Signs - 24 hr 05/26/24 19:53 05/26/24 22:23 Temperature 98.6 F 97.6 F Pulse Rate 76 67 Respiratory Rate 16 18 Blood Pressure 162/99 H 156/106 H Pulse Oximetry 98 98 Oxygen Delivery Method Room Air Room Air BMI result Body Mass Index 29.9 Const General: healthy appearing, comfortable, no acute distress, alert and awake Nutritional Appearance: well nourished Orientation/consciousness: patient oriented x3 HENMT Other: Multiple dental caries. The patient is missing tooth number 18 and 19. There is no significant gingival edema, no dental fracture. No evidence of dental abscess Head: Yes normocephalic and Yes atraumatic Eyes Eyelids: Yes eyelids normal Conjunctivae: conjunctivae normal Sclerae: sclerae normal Corneas: corneas normal Pupils: Equal, round and reactive pupils present EOM: EOMs intact bilaterally Neck Neck: Yes full ROM Resp Effort & Inspection: normal respiratory effort, able to speak in complete sentences and not labored Neuro General: patient oriented x3 Cranial nerves: Yes Equal, round and reactive pupils present and Yes Bilaterally intact EOM present Cognition (Neuro): normal cognition Medical Decision Making Medical Decision Making MDM Narrative: 33-year-old male presents for evaluation of dental pain and facial pain. He has no evidence of dental abscess, no dental trauma, no anterior neck swelling or retropharyngeal edema. Patient will be treated with Augmentin b.i.d. x7 days, analgesia and will follow-up as an outpatient dentist Differential Diagnosis Differential Diagnoses: The differential diagnosis associated with the presentation includes Dental caries Facial pain Dental trauma Trigeminal neuralgia Dental abscess Discharge Plan Discharge Clinical Impression: Toothache, Acute facial pain Patient Disposition: Home, Self-Care Instructions: Toothache (ED) Additional Instructions: Take Augmentin twice daily for the next 7 days. Use ibuprofen/Tylenol for pain. You may use tramadol for more severe breakthrough pain. This may make you sleepy, did not drink alcohol or drive after taking it You may also use [id number] benzocaine/Orajel which is topical dental numbing medicine Call your dentist tomorrow morning to schedule follow-up Prescriptions: New tramadol 50 mg tablet 50 mg PO Q6H PRN (Reason: pain) Qty: 10 0RF amoxicillin-pot clavulanate 875-125 mg tablet 1 tab PO Q12H Qty: 14 0RF No Action albuterol sulfate 90 mcg/actuation aerosol powdr breath activated 2 inh inhalation Q4-6H PRN (Reason: shortness of breath or wheezing) Qty: 1 0RF azithromycin 250 mg tablet See Rx Instructions .ROUTE .COMPLEX Qty: 6 0RF Rx Instructions: For 250 mg dose pack: take 500 mg today (day 1), then 250 mg for 4 days (days 2-5) prednisone 20 mg tablet 20 mg PO DAILY 5 Days Qty: 5 0RF diphenhydramine HCl [Benadryl] 25 mg capsule 25 mg PO TID PRN (Reason: allergic reaction) 7 Days Qty: 21 0RF prednisone 20 mg tablet 40 mg PO DAILY 5 Days Qty: 10 0RF famotidine [Pepcid] 20 mg tablet 20 mg PO BID 7 Days Qty: 14 0RF hydrocortisone 1 % cream 1 appl topical BID PRN (Reason: rash) 14 Days Qty: 28.4 0RF Print Language: Eritrean
[2024-05-26 23:26] VITALS: BP 156/106; PULSE 67; RESP 18; TEMP 36.4; O2SAT 98
== END 2024-05-26 23:29 | disposition home or self-care (01) ==
PROVIDERS: Emergency Provider Internal Medicine; PCP Internal Medicine
DX: K08.89 Other specified disorders of teeth and supporting structures (principal); R51.9 Headache, unspecified
CPT/HCPCS: 99283; 99284

== ENCOUNTER 2024-07-12 14:11 | Emergency (ER) | payer MEDICAID, SELFPAY ==
[2024-07-12 14:17] VITALS: BP 150/109; PULSE 107; RESP 18; TEMP 36.7; O2SAT 95; BMI 28.1
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
[2024-07-12] MEDS: Docusate Sodium 100 MG/10 ML LIQUID PO (16:16)
[2024-07-12 16:53] VITALS: BP 150/109; PULSE 107; RESP 18; TEMP 36.7; O2SAT 95
== END 2024-07-12 17:00 | disposition home or self-care (01) ==
PROVIDERS: Emergency Provider Emergency Medicine; PCP Internal Medicine
DX: H66.92 Otitis media, unspecified, left ear (principal); H61.21 Impacted cerumen, right ear; H93.12 Tinnitus, left ear
CPT/HCPCS: 69210; 99282; 99283

== ENCOUNTER 2024-07-16 06:30 | Emergency (ER) | payer MEDICAID, SELFPAY ==
[2024-07-16 06:34] VITALS: BP 147/97; PULSE 80; RESP 18; TEMP 36.3; O2SAT 100; BMI 28.6
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
[2024-07-16 07:17] VITALS: BP 158/96; PULSE 60; RESP 14; TEMP 36.2; O2SAT 99
== END 2024-07-16 07:22 | disposition home or self-care (01) ==
PROVIDERS: Emergency Provider Internal Medicine; PCP Internal Medicine
DX: H60.502 Unspecified acute noninfective otitis externa, left ear (principal); H93.12 Tinnitus, left ear
CPT/HCPCS: 99282; 99283

== ENCOUNTER 2024-07-18 00:25 | Emergency (ER) | payer MEDICAID, SELFPAY ==
--- NOTE | ~2024-07-18 | CT_ITS ---
EXAMINATION: CT HEAD WITHOUT CONTRAST CLINICAL INFORMATION: Rule out left mastoiditis COMPARISON: 03/18/2022 TECHNIQUE: Contiguous axial imaging was performed from the skull base to vertex without intravenous administration of contrast. This CT examination was performed using dose optimization techniques as appropriate, variously including the following: *Automated exposure control *Adjustment of mA and/or kV according to patient size (this includes techniques or standardized protocols for targeted exams where dose is matched to indication/reason for exam; i.e. extremities or head) *Use of iterative reconstruction technique DLP: 706 mGy-cm FINDINGS: There is no evidence of acute intracranial hemorrhage or territorial infarction. No abnormal mass-effect or midline shift is seen. Dawn to white matter differentiation is well preserved. No extra-axial fluid collections are identified. The ventricles are normal in size. There is no abnormal attenuation within the brain parenchyma. The osseous structures and soft tissues are normal. The mastoid air cells and visualized portions of the paranasal sinuses are well-aerated. CT/CT head/brain wo IV con IMPRESSION: No acute intracranial pathology. No findings to suggest mastoiditis. Electronically signed by: Ho Sawant MD 07/18/2024 04:30 AM EDT
[2024-07-18 00:32] VITALS: BP 156/110; PULSE 106; RESP 20; TEMP 36.8; O2SAT 98; BMI 28.1
--- OUTSIDE RECORDS SUMMARY | 2024-07-18 01:59 | XMS_ITS | Continuity of Care Document ---
Author Organization [facility] ter Address [address] [place] [id number]- Care Team Providers Care Commissioned Security Officer Name Role Phone Not on Staff, PCP Primary Care Physician Unavail able [place] [facility] [place] - 06/17/[address] [id number]- Encounter Diagnosis Hemotympanum(Final) - 06/12/24 Head injury(Final) - 06/12/24 Discharge Disposition: A-D/C Home Attending Physician: Daily Rodríguez MD Admitting Physician: Daily Rodríguez MD Referring Physician: Not on Staff, Referring MD Allergies, Adverse Reactions, Alerts No Known Allergies Medications amLODIPine 5 mg oral tablet 5 mg, Tablet, By Mouth, 06/17/24 9:00:00 EDT, Stop date 06/17/24 9:00:00 EDT Start Date: 06/17/24 Stop Date: 06/17/24 Status: Completed cetirizine 10 mg oral tablet 1 tablet = 10 mg, By Mouth, Daily, PRN Itch, Maintenance, 06/12/24 17:46:00 EDT, Tablet, Partial fill upon patient request if the prescription is for a schedule II opioid drug. Start Date: 06/12/24 Status: Ordered docusate sodium 100 mg oral capsule 1 capsule = 100 mg, By Mouth, 2 times a day, PRN as needed for constipation, Maintenance, 06/12/24 17:47:00 EDT, Capsule, Partial fill upon patient request if the prescription is for a schedule II opioid drug. Start Date: 06/12/24 Status: Ordered Dovato 50 mg-300 mg oral tablet 1 tablet, By Mouth, Daily, Maintenance, 06/12/24 17:46:00 EDT, Tablet, Partial fill upon patient request if the prescription is for a schedule II opioid drug. Start Date: 06/12/24 Status: Ordered fluticasone 50 mcg/inh nasal spray 1 sprays = 50 mcg, Nares, Both, Daily in AM, Maintenance, 06/12/24 17:47:00 EDT, [place], Partial fill upon patient request if the prescription is for a schedule II opioid drug. Start Date: 06/12/24 Status: Ordered hydrOXYzine pamoate 50 mg oral capsule 1 capsule = 50 mg, By Mouth, Every 12 hours, PRN itch, 0 Refills, Maintenance, 06/12/24 17:47:00 EDT, Partial fill upon patient request if the prescription is for a schedule II opioid drug. Start Date: 06/12/24 Status: Ordered Keppra 500 mg oral tablet = 500 mg, By Mouth, 2 times a day, # 5 tablet, 0 Refills, Maintenance, 06/17/24 12:44:00 EDT, Tablet, [facility], Partial fill upon patient request if the prescription is for a scheduleII opioid drug., 178, cm, 06/15/24 8:46:00 EDT, Hei... Start Date: 06/17/24 Stop Date: 06/20/24 Status: Ordered oxyCODONE 5 mg oral tablet 5 mg, Tablet, By Mouth, Every 4 hours, PRN for Pain , Moderate, Routine, 06/12/24 2:52:00 EDT Start Date: 06/12/24 Stop Date: 06/17/24 Status: Discontinued sertraline 25 mg oral tablet 1 tablet = 25 mg, By Mouth, Daily, Maintenance, 06/12/24 17:47:00 EDT, Tablet, Partial fill upon patient request if the prescription is for a schedule II opioid drug. Start Date: 06/12/24 Status: Ordered Suboxone 4 mg-1 mg sublingual film 1 film, Sublingual, Daily at bedtime, Maintenance, 06/12/24 17:46:00 EDT, Partial fill upon patientrequest if the prescription is for a schedule II opioid drug. Start Date: 06/12/24 Status: Ordered Suboxone 8 mg-2 mg sublingual film 1 film, Sublingual, 2 times a day, Maintenance, 06/12/24 17:46:00 EDT, Partial fill upon patient request if the prescription is for a schedule II opioid drug. Start Date: 06/12/24 Status: Ordered traMADol 50 mg oral tablet 1 tablet = 50 mg, By Mouth, Every 6 hours, PRN as needed for pain, Maintenance, 06/12/24 17:46:00 EDT, Tablet, Partial fill upon patient request if the prescription is for a schedule II opioid drug. Start Date: 06/12/24 Status: Ordered Tylenol 325 mg oral tablet 975 mg, By Mouth, Every 6 hours, Refills 0, Maintenance, 06/17/24 12:43:00 EDT, Partial fill upon patient request if the prescription is for a schedule II opioid drug. Start Date: 06/17/24 Status: Ordered Problem List Condition Confirmation Course Effective Dates Status [facility] Informant PCP (phencyclidine) abuse Confirmed Active Results Radiology Reports * Exam Date Time Procedure Performing Provider Status 06/13/24 4:[address] Head/Brain W/O Contrast Kelli Cordoba ; Auth (Verified) Notes: (CT Head/Brain W/O Contrast) Reason For Exam: Trauma RESULT: CT Head/Brain W/O Contrast CT Head/Brain W/O Contrast INDICATION: Reason: Trauma; Clinical Question(s): Hematoma; Special Instructions: Monitoring SAH SDH. Must be done AM 8 1 per NSGY TECHNIQUE: Noncontrast head CT using axial technique and reconstructed in axial and coronal planes.Iterative reconstruction techniques are used to optimize dose and image quality. CTDIvol Head: 45.70 mGy, DLP Head: 773 mGy*cm. COMPARISON: Head CT 06/12/2024. FINDINGS: Food Service Technician view findings, lines and tubes: None. BRAIN AND EXTRA-AXIAL SPACES: No significant change in the areas of left frontoparietal subarachnoid hemorrhage with possible parenchymal component which has adjacent parenchymal edema. The edema appears increased. No significantchange in subdural component which extends inferiorly along the falx, tentorium, and into the middle cranial fossa. No large acute territorial infarct. Stable ventricular size and configuration without evidence of hydrocephalus. Basal cisterns are patent. CALVARIUM, SKULL BASE, AND SOFT TISSUES: Right mastoid fracture demonstrated. Paranasal sinus mucosal thickening and fluid in the sphenoid sinus. Right scalp hematoma again demonstrated. IMPRESSION: No significant change in extent of the subarachnoid and subdural hematoma. Increasing edema associated with possible parenchymal components in the left frontal and parietal region. WSN: [id number] Ordering Physician: Trina Vazquez Dictated By: Madhavi Pryor MD Dictated Date/Time: 06/13/24 9:57 am Reviewed By: Madhavi Pryor MD Signed By: Madhavi Pryor MD Signed Date/Time: 06/13/24 9:57 am Transcribed By: RUMA Transcribed Date/Time: 06/13/24 9:52 am * Exam Date Time Procedure Performing Provider Status 06/12/24 12:[address] Head/Brain W/O Contrast Cheyenne Stephenson; Auth (Verified) Notes: (CT Head/Brain W/O Contrast) Reason For Exam: possible SAH on initial CT imaging, persistent altered mental status;Trauma RESULT: CT Head/Brain W/O Contrast CT Head/Brain W/O Contrast Reason: Trauma; possible SAH on initial CT imaging, persistent altered mental status; Clinical Question(s): Hematoma; Order Comment:. TECHNIQUE: Incremental CT without contrast through the head was formatted in axial and coronal plane. Weight-based protocol using automatic tube modulation was performed to optimize scan parameters. CTDIvol Head: 47.50 mGy, DLP Head: 773 mGy*cm. COMPARISON: Portions of exams performed Earlier the same day and 03/27/2022. FINDINGS: BRAIN and EXTRA-AXIAL SPACES: Worsening subarachnoid and or intraparenchymal hemorrhage in the leftfrontoparietal region extending caudally with a probable small subdural component extending inferiorly along the left temporal fossa laterally and falx posteriorly. This is best seen on and coronal image 26 through 28. CALVARIUM, SKULL BASE AND SOFT TISSUES: Previously identified right mastoid fracture with layering fluid in the left sphenoid sinus. Visualized orbits and globes are intact. Right posterior parietal scalp hematoma is again noted. IMPRESSION: Worsening subarachnoid and subdural hemorrhage on the left. Impression sent to Jami Lobo MD via [employer] 06/12/2024 12:21 PM with immediate acknowledgement received. WSN: [id number] Ordering Physician: Jami Lobo Dictated By: Dennis Cowart MD Dictated Date/Time: 06/12/24 12:29 p Reviewed By: Dennis Cowart MD Signed By: Dennis Cowart MD Signed Date/Time: 06/12/24 12:29 pm Transcribed By: RUMA Transcribed Date/Time: 06/12/24 12:20 pm * Exam Date Time Procedure Performing Provider Status 06/12/24 1:32 AM Chest Portable Horace Lisa (Ve rified) Notes: (Chest Portable) Reason For Exam: Pain;Other: RESULT: Chest Portable Chest Portable Reason: Pain after trauma COMPARISON: None. FINDINGS: LINES AND TUBES: None. LUNGS AND PLEURA: Low lung volumes but no consolidation or contusion. No pleural effusion. No pneumothorax. HEART, MEDIASTINUM AND JC: Heart is normal in size. Normal mediastinal and hilar contour. BONES AND SOFT TISSUES: Normal. IMPRESSION: Normal. WSN: [id number] Ordering Physician: Hortencia Sam Dictated By: Jason Santiago MD Dictated Date/Time: 06/12/24 7:22 am Reviewed By: Jason Santiago MD Signed By: Jason Santiago MD Signed Date/Time: 06/12/24 7:22 am Transcribed By: RUMA Transcribed Date/Time: 06/12/24 7:21 am * Exam Date Time Procedure Performing Provider Status 06/12/24 1:[address] Abd/Pelvis W/ IV Contrast Only Joe Cordoba (Verified) Notes: (CT Abd/Pelvis W/ IV Contrast Only) Reason For Exam: Abd trauma, blunt;Other: RESULT: CT Abd/Pelvis W/ IV Contrast Only CT Chest W/ Contrast, CT Abd/Pelvis W/ IV Contrast Only INDICATION: Chest trauma, blunt; Clinical Question(s): Aortic hilar injury TECHNIQUE: Helical CT scan of the chest, abdomen, and pelvis with IV contrast, formatted in 3 planes. 100 cc of Omnipaque 300 was administered intravenously. This study was performed without oral contrast. Weight-based protocol was performed using automatic exposure control. CTDIvol Body: 16.80 mGy, DLP Body: 1246 mGy*cm. COMPARISON: None. FINDINGS: Food Service Technician view findings, lines and tubes: None. Trachea and airways: Patent without evidence of tracheal or endobronchial lesion. Lungs and pleura: Bilateral dependent atelectasis. Lungs otherwise clear. No pleural effusion. No pneumothorax. . Mediastinum and jc: No mass or hematoma. No mediastinal or hilar lymphadenopathy. No esophageal abnormality. Normal thyroid. Heart: Heart is normal in size. No pericardial effusion. Aorta: No aortic aneurysm. Pulmonary arteries: Normal caliber. No evidence of pulmonary embolism on this study performed without angiographic technique. Chest wall soft tissues: No acute abnormality. Diaphragm: Intact. Liver: Normal in attenuation and morphology. No suspicious lesion. Gallbladder: No CT evidence of gallbladder pathology. Bile ducts: No biliary ductal dilation. Spleen: Normal. Accessory splenic tissue is incidentally noted. Pancreas: No suspicious lesion or ductal dilatation. Adrenal glands: No nodule. Kidneys and ureters: No hydronephrosis, stone, or suspicious lesion. Bladder: No wall thickening or surrounding stranding. Reproductive organs: Unremarkable. Stomach, small bowel, and large bowel: Stomach is distended with ingested material. Normal caliber bowel loops. No surrounding inflammatory changes. Moderate proximal colonic stool retention. No obstruction. Few scattered colonic diverticuli, without any evidence of acute diverticulitis. Appendix: No evidence of acute appendicitis. Peritoneum and retroperitoneum: No ascites or pneumoperitoneum. No omental or mesenteric lesions. Lymph nodes: No enlarged lymph nodes. Blood vessels: No vascular calcifications or aneurysm. No evidence of venous thrombosis. Abdominal and pelvic wall soft tissues: Small fat-containing left inguinal hernia. Bones: No acute abnormality. IMPRESSION: No acute traumatic abnormality in the chest, abdomen or pelvis. Results were conveyed in person by Dr. Barrera to Kenny Mcfarlane MD on 06/12/2024 at 1:45 AM with understanding acknowledged. I have personally reviewed the images and I agree with this report. WSN: [id number] Ordering Physician: Hortencia Sam Dictated By: Mike Barrera MD Dictated Date/Time: 06/12/24 7:24 am Reviewed By: Burke Alvarado MD Signed By: Burke Alvarado MD Signed Date/Time: 06/12/24 7:29 am Transcribed By: RUMA Transcribed Date/Time: 06/12/24 2:46 am * Exam Date Time Procedure Performing Provider Status 06/12/24 1:[address] Chest W/ Contrast Kelli Cordoba; Aut h (Verified) Notes: (CT Chest W/ Contrast) Reason For Exam: Chest trauma, blunt;Other: RESULT: CT Chest W/ Contrast CT Chest W/ Contrast, CT Abd/Pelvis W/ IV Contrast Only INDICATION: Chest trauma, blunt; Clinical Question(s): Aortic hilar injury TECHNIQUE: Helical CT scan of the chest, abdomen, and pelvis with IV contrast, formatted in 3 planes. 100 cc of Omnipaque 300 was administered intravenously. This study was performed without oral contrast. Weight-based protocol was performed using automatic exposure control. CTDIvol Body: 16.80 mGy, DLP Body: 1246 mGy*cm. COMPARISON: None. FINDINGS: Food Service Technician view findings, lines and tubes: None. Trachea and airways: Patent without evidence of tracheal or endobronchial lesion. Lungs and pleura: Bilateral dependent atelectasis. Lungs otherwise clear. No pleural effusion. No pneumothorax. . Mediastinum and jc: No mass or hematoma. No mediastinal or hilar lymphadenopathy. No esophageal abnormality. Normal thyroid. Heart: Heart is normal in size. No pericardial effusion. Aorta: No aortic aneurysm. Pulmonary arteries: Normal caliber. No evidence of pulmonary embolism on this study performed without angiographic technique. Chest wall soft tissues: No acute abnormality. Diaphragm: Intact. Liver: Normal in attenuation and morphology. No suspicious lesion. Gallbladder: No CT evidence of gallbladder pathology. Bile ducts: No biliary ductal dilation. Spleen: Normal. Accessory splenic tissue is incidentally noted. Pancreas: No suspicious lesion or ductal dilatation. Adrenal glands: No nodule. Kidneys and ureters: No hydronephrosis, stone, or suspicious lesion. Bladder: No wall thickening or surrounding stranding. Reproductive organs: Unremarkable. Stomach, small bowel, and large bowel: Stomach is distended with ingested material. Normal caliber bowel loops. No surrounding inflammatory changes. Moderate proximal colonic stool retention. No obstruction. Few scattered colonic diverticuli, without any evidence of acute diverticulitis. Appendix: No evidence of acute appendicitis. Peritoneum and retroperitoneum: No ascites or pneumoperitoneum. No omental or mesenteric lesions. Lymph nodes: No enlarged lymph nodes. Blood vessels: No vascular calcifications or aneurysm. No evidence of venous thrombosis. Abdominal and pelvic wall soft tissues: Small fat-containing left inguinal hernia. Bones: No acute abnormality. IMPRESSION: No acute traumatic abnormality in the chest, abdomen or pelvis. Results were conveyed in person by Dr. Barrera to Kenny Mcfarlane MD on 06/12/2024 at 1:45 AM with understanding acknowledged. I have personally reviewed the images and I agree with this report. WSN: [id number] Ordering Physician: Hortencia Sam Dictated By: Mike Barrera MD Dictated Date/Time: 06/12/24 7:24 am Reviewed By: Burke Alvarado MD Signed By: Burke Alvarado MD Signed Date/Time: 06/12/24 7:29 am Transcribed By: RUMA Transcribed Date/Time: 06/12/24 2:46 am * Exam Date Time Procedure Performing Provider Status 06/12/24 1:[address] Maxilloface W/O Contrast Ian Cordoba da; Auth (Verified) Notes: (CT Maxilloface W/O Contrast) Reason For Exam: Facial trauma, blunt;Other: RESULT: CT Maxilloface W/O Contrast CT Head/Brain W/O Contrast, CT Cervical Spine W/O Contrast, CT Maxilloface W/O Contrast INDICATION: Head trauma, mod-severe; Clinical Question(s): Hematoma TECHNIQUE: Noncontrast head CT using axial technique was reconstructed in axial and coronal planes.Noncontrast spiral CT through the cervical spine was formatted in 3 planes. Automatic tube modulation was used for the cervical spine and iterative dose reconstruction was used for both the head and cervical spine to optimize scan parameters and image quality. CTDIvol Body: 15.30 mGy, DLP Body: 490 mGy*cm. CTDIvol Head: 39.80 mGy, DLP Head: 672 mGy*cm. COMPARISON: None. FINDINGS: Significantly limited study due to patient motion. Food Service Technician View Findings, Lines and Tubes: None. BRAIN AND EXTRA-AXIAL SPACES: Scattered areas of hyperdense foci along the left frontoparietal sulci, which likely represents trace subarachnoid hemorrhage (series 202; image 55-66) No parenchymal hemorrhage, midline shift, or mass effect. Dawn-white matter differentiation is well preserved. No acute infarct. Negative insular ribbon and hyperdense vessel signs. Ventricles, sulci, and basilar cisterns are normal. No white matter lesions. No subdural or epidural collection. CALVARIUM, SKULL BASE, AND SOFT TISSUES: Linear lucency traversing the mastoid portion of the right temporal bone (series 301 cm image 113 and series 304; image 160-165) the fracture line does not involve the otic capsule. Opacification of the anterior right mastoid air cells with high density fluid in the external auditory canal and the middle ear, suggestive of hemotympanum. Mucosal thickening within the left sphenoid sinus. Visualized orbits and globes are intact. Small right frontoparietal scalp hematoma. CERVICAL SPINE: No fracture. No acute osseous abnormalities. Normal alignment. No locked or perched facet. Intervertebral disc spaces and vertebral body heightsare preserved. OTHER BONES: No acute abnormality. CERVICAL SOFT TISSUES AND LUNG APICES: Normal soft tissues. Limited due to motion artifact. Normal thyroid. IMPRESSION: Significantly limited study due to patient motion. Subarachnoid hemorrhage along the left frontoparietal region, although definitive assessment is difficult given the motion. Repeat CT or MRI, as clinically needed. Fracture involving the mastoid portion of the right temporal bone, sparing the otic capsule, with associated hemotympanum. Small right frontoparietal scalp hematoma. The impression above was relayed to Kenny Mcfarlane MD by Dr. Mike Barrera in person on 06/12/2024 at 1:45 AM. I have personally reviewed the images and I agree with this report. WSN: [id number] Ordering Physician: Hortencia Sam Dictated By: Mike Barrera MD Dictated Date/Time: 06/12/24 7:35 am Reviewed By: Luca Evans MD Signed By: Luca Evans MD Signed Date/Time: 06/12/24 7:40 am Transcribed By: RUMA Transcribed Date/Time: 06/12/24 2:37 am * Exam Date Time Procedure Performing Provider Status 06/12/24 1:[address] Cervical Spine W/O Contrast Tay Cordoba; Ciara (Verified) Notes: (CT Cervical Spine W/O Contrast) Reason For Exam: Neck trauma, dangerous injury mechanism;Other: RESULT: CT Cervical Spine W/O Contrast CT Head/Brain W/O Contrast, CT Cervical Spine W/O Contrast, CT Maxilloface W/O Contrast INDICATION: Head trauma, mod-severe; Clinical Question(s): Hematoma TECHNIQUE: Noncontrast head CT using axial technique was reconstructed in axial and coronal planes.Noncontrast spiral CT through the cervical spine was formatted in 3 planes. Automatic tube modulation was used for the cervical spine and iterative dose reconstruction was used for both the head and cervical spine to optimize scan parameters and image quality. CTDIvol Body: 15.30 mGy, DLP Body: 490 mGy*cm. CTDIvol Head: 39.80 mGy, DLP Head: 672 mGy*cm. COMPARISON: None. FINDINGS: Significantly limited study due to patient motion. Food Service Technician View Findings, Lines and Tubes: None. BRAIN AND EXTRA-AXIAL SPACES: Scattered areas of hyperdense foci along the left frontoparietal sulci, which likely represents trace subarachnoid hemorrhage (series 202; image 55-66) No parenchymal hemorrhage, midline shift, or mass effect. Dawn-white matter differentiation is well preserved. No acute infarct. Negative insular ribbon and hyperdense vessel signs. Ventricles, sulci, and basilar cisterns are normal. No white matter lesions. No subdural or epidural collection. CALVARIUM, SKULL BASE, AND SOFT TISSUES: Linear lucency traversing the mastoid portion of the right temporal bone (series 301 cm image 113 and series 304; image 160-165) the fracture line does not involve the otic capsule. Opacification of the anterior right mastoid air cells with high density fluid in the external auditory canal and the middle ear, suggestive of hemotympanum. Mucosal thickening within the left sphenoid sinus. Visualized orbits and globes are intact. Small right frontoparietal scalp hematoma. CERVICAL SPINE: No fracture. No acute osseous abnormalities. Normal alignment. No locked or perched facet. Intervertebral disc spaces and vertebral body heightsare preserved. OTHER BONES: No acute abnormality. CERVICAL SOFT TISSUES AND LUNG APICES: Normal soft tissues. Limited due to motion artifact. Normal thyroid. IMPRESSION: Significantly limited study due to patient motion. Subarachnoid hemorrhage along the left frontoparietal region, although definitive assessment is difficult given the motion. Repeat CT or MRI, as clinically needed. Fracture involving the mastoid portion of the right temporal bone, sparing the otic capsule, with associated hemotympanum. Small right frontoparietal scalp hematoma. The impression above was relayed to Kenny Mcfarlane MD by Dr. Mike Barrera in person on 06/12/2024 at 1:45 AM. I have personally reviewed the images and I agree with this report. WSN: [id number] Ordering Physician: Hortencia Sam Dictated By: Holly VELEZ, Mike Cross Dictated Date/Time: 06/12/24 7:35 am Reviewed By: Luca Evans MD Signed By: Luca Evans MD Signed Date/Time: 06/12/24 7:40 am Transcribed By: RUMA Transcribed Date/Time: 06/12/24 2:37 am * Exam Date Time Procedure Performing Provider Status 06/12/24 1:[address] Head/Brain W/O Contrast Jacey Cordoba; Auth (Verified) Notes: (CT Head/Brain W/O Contrast) Reason For Exam: Head trauma, mod-severe;Other: RESULT: CT Head/Brain W/O Contrast CT Head/Brain W/O Contrast, CT Cervical Spine W/O Contrast, CT Maxilloface W/O Contrast INDICATION: Head trauma, mod-severe; Clinical Question(s): Hematoma TECHNIQUE: Noncontrast head CT using axial technique was reconstructed in axial and coronal planes.Noncontrast spiral CT through the cervical spine was formatted in 3 planes. Automatic tube modulation was used for the cervical spine and iterative dose reconstruction was used for both the head and cervical spine to optimize scan parameters and image quality. CTDIvol Body: 15.30 mGy, DLP Body: 490 mGy*cm. CTDIvol Head: 39.80 mGy, DLP Head: 672 mGy*cm. COMPARISON: None. FINDINGS: Significantly limited study due to patient motion. Food Service Technician View Findings, Lines and Tubes: None. BRAIN AND EXTRA-AXIAL SPACES: Scattered areas of hyperdense foci along the left frontoparietal sulci, which likely represents trace subarachnoid hemorrhage (series 202; image 55-66) No parenchymal hemorrhage, midline shift, or mass effect. Dawn-white matter differentiation is well preserved. No acute infarct. Negative insular ribbon and hyperdense vessel signs. Ventricles, sulci, and basilar cisterns are normal. No white matter lesions. No subdural or epidural collection. CALVARIUM, SKULL BASE, AND SOFT TISSUES: Linear lucency traversing the mastoid portion of the right temporal bone (series 301 cm image 113 and series 304; image 160-165) the fracture line does not involve the otic capsule. Opacification of the anterior right mastoid air cells with high density fluid in the external auditory canal and the middle ear, suggestive of hemotympanum. Mucosal thickening within the left sphenoid sinus. Visualized orbits and globes are intact. Small right frontoparietal scalp hematoma. CERVICAL SPINE: No fracture. No acute osseous abnormalities. Normal alignment. No locked or perched facet. Intervertebral disc spaces and vertebral body heightsare preserved. OTHER BONES: No acute abnormality. CERVICAL SOFT TISSUES AND LUNG APICES: Normal soft tissues. Limited due to motion artifact. Normal thyroid. IMPRESSION: Significantly limited study due to patient motion. Subarachnoid hemorrhage along the left frontoparietal region, although definitive assessment is difficult given the motion. Repeat CT or MRI, as clinically needed. Fracture involving the mastoid portion of the right temporal bone, sparing the otic capsule, with associated hemotympanum. Small right frontoparietal scalp hematoma. The impression above was relayed to Kenny Mcfarlane MD by Dr. Mike Barrera in person on 06/12/2024 at 1:45 AM. I have personally reviewed the images and I agree with this report. WSN: [id number] Ordering Physician: Hortencia Sam Dictated By: Mike Barrera MD Dictated Date/Time: 06/12/24 7:35 am Reviewed By: Luca Evans MD Signed By: Luca Evans MD Signed Date/Time: 06/12/24 7:40 am Transcribed By: RUMA Transcribed Date/Time: 06/12/24 2:37 am Vital Signs Most recent to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 Objective/Physical Exam on Day of Discharge Vitals & Measurements T:??97.9?F?? HR:??65??(Peripheral)?? RR:??16?? BP:??101/74?? SpO2:??100%?? HT:??178??cm?? WT:??80.6??kg?? BMI:??25.44?? General: Alert, NAD?Lungs: Nonlabored breathing, respiratory rate even, unlabored ??Cardiovascular: Extremities warm and well perfused, no pitting edema ??Abdomen: Soft, nondistended, nontender to palpation ??Neuro: moving all extremities spontaneously ??Skin: W/P/D Discharge Disposition Home with 24 hr supervision ?? 45 mins spent on discharge including chart review, documentation and face to face time.?? Inpatient Medications Medications (10) Active SCHEDULED: (6) Acetaminophen 325 mg Tablet (Tylenol 325 mg oral tablet) ??975 mg, By Mouth, Every 6 hours Amlodipine 5 mg Tablet (amLODIPine 5 mg oral tablet) ??5 mg, By Mouth, Daily Fluticasone Propionate 50mcg/inh Nasal [place] (fluticasone 50 mcg/inh nasal spray) ??50 mcg 1 sprays, Nares, Both, Daily in AM Heparin 5000 units/mL Inj (1 mL) (Heparin Inj) ??5,000 units 1 mL, Subcutaneous Injection, 3 times a day Keppra 500mg Tablet (Keppra 500 mg oral tablet) ??500 mg, By Mouth, 2 times a day Sertraline 25 mg Tablet (sertraline 25 mg oral tablet) ??25 mg, By Mouth, Daily CONTINUOUS: (0) PRN: (4) Cetirizine 5 mg Tablet (cetirizine 5 mg oral tablet) ??10 mg, By Mouth, Daily Docusate Sodium 100 mg Capsule (docusate sodium 100 mg oral capsule) ??100 mg 1 capsule, By Mouth, 2 times a day Ondansetron 2mg/mL Inj (2mL Vial) (Zofran Inj) ??4 mg, IV Push, Every 6 hours OxyCODONE 5 mg IR Tablet (oxyCODONE 5 mg oral tablet) ??5 mg, By Mouth, Every 4 hours Discharge Medications Acetaminophen (Tylenol 325 mg oral tablet)?975?Milligram?By Mouth?Every 6 hours Buprenorphine-Naloxone (Suboxone 4 mg-1 mg sublingual film)?1?Film?Sublingual?Daily at bedtime Buprenorphine-Naloxone (Suboxone 8 mg-2 mg sublingual film)?1?Film?Sublingual?2 times aday Cetirizine (cetirizine 10 mg oral tablet)?1?tab(s)?10?Milligram?By Mouth?Daily?as needed?Itch Docusate (docusate sodium 100 mg oral capsule)?1?capsule?100?Milligram?By Mouth?2times a day?as needed?as needed for constipation dolutegravir-lamivudine (Dovato 50 mg-300 mg oral tablet)?1?tab(s)?By Mouth?Daily Fluticasone Nasal (fluticasone 50 mcg/inh nasal spray)?1?spray(s)?50?Microgram?Nares, Both?Daily in AM HydrOXYzine (hydrOXYzine pamoate 50 mg oral capsule)?1?capsule?50?Milligram?By Mouth?Every 12 hours?as needed?itch levETIRAcetam (Keppra 500 mg oral tablet)?500?Milligram?By Mouth?2 times a day?for 3?Days Sertraline (sertraline 25 mg oral tablet)?1?tab(s)?25?Milligram?By Mouth?Daily Tramadol (traMADol 50 mg oral tablet)?1?tab(s)?50?Milligram?By Mouth?Every 6 hours?as needed?as needed for pain Labs Last 24 Hours No qualifying data available. Patient Education Titles Web[employer] Ignite Patient Education - Head Trauma (Traumatic Brain Injury)?? Follow-Up Appointments Added Follow Up ?Time Frame ?Comments [facility]?1 to 2 weeks?Please call to book appointment Patient Instructions You were treated for concussion symptoms or have a mild traumatic brain injury that resulted in a minor bleed within your skull. ??The following symptoms are expected over the next few weeks: -Headache, dizziness, lightheadedness, confusion, light sensitivity, sleep difficulties, mood changes- however these are temporary and should resolve within the first few weeks?? -If symptoms are occurring can take time off of work, but should follow up with PCP for return to work?? -You will follow up with the trauma concussion clinic in 3 weeks after discharge and this appointment is already made for you, details are in your discharge paperwork -You will be contacted by the office staff a week prior to appointment to see if you are still experiencing symptoms, if you are not then the appointment is not needed. ??If symptoms have not resolved by this time the appointment will be confirmed. -Can try to increase activities as tolerated, try some light activity such as walking inside or outside, can use TVs or phones but stop if symptoms get worse -If headache gets suddenly worse and pain meds aren???t helping, dizziness with associated vomitingnot controlled by meds, sudden confusion/ forgetfulness that worsens with time, new balance issues please call concussion clinic at [phone] or visit nearest emergency room immediately?? * Sharron Ashley RN: PERFORM Event Display: Patient Education/Instruction Authored Date: [id number] Inpatient Adult Discharge Instructions. [place] [id number] Name: JUANIS NGUYEN : 1990?? Visit: 06/12/2024 14:25?? Current Date: 06/17/2024 13:06 ?? Account: [id number]?? Inpatient Adult Discharge Instructions We would like to thank you for allowing us to assist you with your healthcare needs. The following includes patient education materials and information regarding your injury/illness. Our entire staffstrives to provide an excellent experience for our patients and their families. PLEASE ENSURE YOU FOLLOW-UP PER THE INSTRUCTIONS BELOW! ?? YOUR OPINION IS IMPORTANT TO US! Please complete the survey you may receive by mail or email. Your feedback will be used to make improvements to the healthcare experiences of our patients and their families. Surveys are administered by [employer] ?? If further treatment with your primary care physician or another doctor is recommended, it is important for you to keep the appointment. Call your primary care physician or return to the Emergency Department immediately if your condition worsens, fails to improve, or new symptoms develop. If you need to find a doctor, you can call [facility] Link for a referral at [phone] or toll free at [phone] or log in to [email or web address].. ?? [facility], in keeping with [facility] guidance, no longer requires face masks for staff, patientsor visitors in most situations. Similiar to time spent indoors at other locations, there is the chance that you were exposed to repiratory viruses during your time with us (such as flu or COVID-19). If you develop symptoms concerning for a viral respiratory infection, please seek testing (and treatment if indicated) from your medical provider or home test kit. ?? You can view and manage your care through the patient portal or by using a health care farhat of your choosing. [employer] is a website that allows you to securely view your medical information including your hospital discharge summary, office visit summaries, medications and follow-up visits. You can also request appointments, renew medications, and request access to your medical information using a health care farhat of your choosing, or just ask a question. You can enroll at [email or web address] or register during your next office visit. You have been discharged from [facility], Patient Care Unit: D5A??. If you have any questions regarding these instructions, including results of studies pending, afteryou leave, please call us and we will be happy to assist you 05/06. [facility] Your Care Team Attending Physician Daily Rodríguez MD?? Consulting Providers Daily Rodríguez MD?? Discharging Providers Natalio Figueroa NP Your Diagnosis Closed fracture of mastoid bone Traumatic subarachnoid hemorrhage with loss of consciousness of 30 minutes or less, initial encounter Tests Performed Below is a partial list of the tests performed during your hospitalization. You may have had other tests and procedures not included in this list. Please discuss all test results with your provider. Alcohol Level Amphetamine Urine Screen Amylase Barbiturate Urine Screen Basic Metabolic Panel Benzodiazepine Urine Screen Cannabinoid Urine Screen CBC CBC w/ Differential Cocaine Urine Screen COVID-19 (2019 Novel Coronavirus) PCR HOLD GREEN TUBE Hold Red Top Tube Lactic Acid Level Magnesium Level Opiate Screen Urine Phosphorus Level PT (INR) PTT Type and Screen CT Abd/Pelvis W/ IV Contrast Only CT Cervical Spine W/O Contrast CT Chest W/ Contrast CT Head/Brain W/O Contrast CT Maxilloface W/O Contrast XR Chest Portable Amphetamine Urine Screen?? Amylase?? Barbiturate Urine Screen?? Basic Metabolic Panel?? Benzodiazepine Urine Screen?? CBC (COMPLETE BLOOD COUNT)?? CBC w/ Differential?? COVID-19 (2019 Novel Coronavirus) PCR?? CT Abd/Pelvis W/ IV Contrast Only?? CT Cervical Spine W/O Contrast?? CT Chest W/ Contrast?? CT Head/Brain W/O Contrast?? CT Maxilloface W/O Contrast?? Cannabinoid Urine Screen?? Cocaine Urine Screen?? Ethanol Level (Alcohol Level)?? Hold Green Top Tube (HOLD GREEN TUBE)?? Hold Red Top Tube?? INR (PT (INR))?? Lactic Acid Level?? Magnesium Level (MAGNESIUM)?? Opiate Screen Urine?? PTT?? Phosphorus Level (PHOSPHORUS)?? Type and Screen?? Chest Portable (XR Chest Portable)?? Primary Care Provider Not on Staff, PCP?? Advance Directive Health Care Proxy on File Yes - Health Care Proxy Name of Caregiver: Nini Nguyen Patient has a Designated Caregiver: Yes Discharge Vitals Temperature: 97.9 DegF Height: 178 cm Pulse Rate: 65 bpm Weight: 80.6 kg Respiratory Rate: 16 br/min Body Mass Index:??25.44 kg/m2??High Systolic Blood Pressure: 101 mm Hg Body surface area: 2 Diastolic Blood Pressure: 74 mm Hg ?? Oxygen Saturation: 100 % ?? Studies Pending All studies ordered during this hospital stay have been completed unless listed below. Please discuss all pending results with your provider listed above in these instructions. ?? No incomplete studies found?? What to do next Instructions From Your Doctor You were treated for concussion symptoms or have a mild traumatic brain injury that resulted in a minor bleed within your skull. ??The following symptoms are expected over the next few weeks: -Headache, dizziness, lightheadedness, confusion, light sensitivity, sleep difficulties, mood changes- however these are temporary and should resolve within the first few weeks?? -If symptoms are occurring can take time off of work, but should follow up with PCP for return to work?? -You will follow up with the trauma concussion clinic in 3 weeks after discharge and this appointment is already made for you, details are in your discharge paperwork -You will be contacted by the office staff a week prior to appointment to see if you are still experiencing symptoms, if you are not then the appointment is not needed. ??If symptoms have not resolved by this time the appointment will be confirmed. -Can try to increase activities as tolerated, try some light activity such as walking inside or outside, can use TVs or phones but stop if symptoms get worse -If headache gets suddenly worse and pain meds aren???t helping, dizziness with associated vomitingnot controlled by meds, sudden confusion/ forgetfulness that worsens with time, new balance issues please call concussion clinic at [phone] or visit nearest emergency room immediately? Orders? 06/17/24 13:01:00 EDT?? You Need to Schedule the Following Appointments Follow Up with??[facility] Where: [address] [place] [address] [address] [place] [address]- Follow Up with[facility] When:??Within 1 to 2 weeks Why: Please call to book appointment Where: [address] [facility] [address] [place] [address]- Discharge Medications JUANIS NGUYEN :1990 Visit Date:06/12/2024 Medications: Please continue your medications until treatment is completed or stopped by your provider. Medications not listed below should be discontinued. Discuss any questions related to medications with your provider. What How Much When Instructions Next Dose New Acetaminophen (Tylenol 325 mg oral tablet) 975 Milligram Oral Every 6 hours 8/5 2pm New levETIRAcetam (Keppra 500 mg oral tablet) 500 Milligram Oral Twice a day Duration: 3 Days Pickup at [facility] 3 8/5 8pm Unchanged Buprenorphine-Naloxone (Suboxone 4 mg-1 mg sublingual film) 1 Film Sublingual Daily at Bedtime 8/5 8pm Unchanged Buprenorphine-Naloxone (Suboxone 8 mg-2 mg sublingual film) 1 Film Sublingual Twice a day 8 8am Unchanged Cetirizine (cetirizine 10 mg oral tablet) 1 tab(s) Oral Daily as needed for Itch 8/5 4pm Unchanged Docusate (docusate sodium 100 mg oral capsule) 1 capsule Oral Twice a day as needed for as needed for constipation Unchanged dolutegravir-lamivudine (Dovato 50 mg-300 mg oral tablet) 1 tab(s) Oral Daily 06/17 8am Unchanged Fluticasone Nasal (fluticasone 50 mcg/ inh nasal spray) 1 spray(s) Nares, Both Daily in the morning 06/18 8am Unchanged HydrOXYzine (hydrOXYzine pamoate 50 mg oral capsule) 1 capsule Oral Every 12 hours as needed for itch Unchanged Sertraline (sertraline 25 mg oral tablet) 1 tab(s) Oral Daily 06/18 8am Unchanged Tramadol (traMADol 50 mg oral tablet) 1 tab(s) Oral Every 6 hours as needed for as needed for pain Pharmacy Information [facility] 3: [address] [place], [place] [id number] [phone] ?? What How Much When Comments Stop Taking Metoprolol (Metoprolol Succinate ER 25 mg oral tablet, extended release) 1 tab(s) Oral Daily Prescription Given During Visit levETIRAcetam (Keppra 500 mg oral tablet) - 500 mg, By Mouth, 2 times a day, # 5 tablet, 0 Refills,[facility], [address] [place] [phone]?? Laboratory Results Below is a partial list of the most recent Laboratory test results done prior to this discharge. You may have had other tests and procedures not included in this list. Please discuss all test resultswith your provider. Est Creatinine Clearance - 165.36 mL/min (06/15/2024) Alcohol Level (06/12/2024) ???Ethanol, Serum or Plasma - NONE DETECTED Amphetamine Urine Screen (06/12/2024) ???Amphetamine Screen, Urine - NONE DETECTED Amylase (06/12/2024) ???Amylase - 47 units/L Barbiturate Urine Screen (06/12/2024) ???Barbiturate Screen, Urine - NONE DETECTED Basic Metabolic Panel (06/15/2024) ???Sodium - 139 mmol/L???Potassium - 4.4 mmol/L???Chloride - 103 mmol/L???Bicarbonate Level - 21 mmol/L???Anion Gap - 15???Glucose Level - 125 mg/dL???BUN - 9 mg/dL???Creatinine-Blood - 0.67 mg/dL???Estimated GFR Creatinine - 128 ML/MIN/1.73 M2???Calcium - 10.2 mg/dL Benzodiazepine Urine Screen (06/12/2024) ???Benzodiazepine Screen, Urine - NONE DETECTED Cannabinoid Urine Screen (06/12/2024) ???Cannabinoid Screen, Urine - POSITIVE CBC (06/15/2024) ???WBC - 17.4 k/mm3???RBC - 4.69 m/mm3???Hgb - 13.7 Gm/dL???Hct - 42.6 %???MCV - 90.8 femtoliters???MCH - 29.2 pg???MCHC - 32.2 g/dL???Platelet Count - 485 k/mm3???RDW-SD - 51.1 femtoliters???MPV - 10.6 femtoliters???Nucleated RBC (Automated) - 0.0 #/100 WBC'S???Abs. NRBC - 0.0 k/mm3 CBC w/ Differential (06/12/2024) ???WBC - 18.5 k/mm3???RBC - 4.84 m/mm3???Hgb - 14.3 Gm/dL???Hct - 44.8 %???MCV - 92.6 femtoliters???MCH - 29.5 pg???MCHC - 31.9 g/dL???Platelet Count - 484 k/mm3???RDW-SD - 52.7 femtoliters???MPV - 10.0 femtoliters???Nucleated RBC (Automated) - 0.0 #/100 WBC'S???Abs. NRBC - 0.0 k/mm3???Abs. Neut - 7.2 k/mm3???Abs. Lymph - 9.4 k/mm3???Abs. [place] - 1.2 k/mm3???Abs. Eo - 0.6 k/mm3???Abs. Baso - 0.1 k/mm3???Neut % - 38.9 %???Lymph % - 50.7 %???[place] % - 6.4 %???Eos % - 3.1 %???Baso % - 0.5 %???RBC Morphology - FEW???Platelet Estimate - INCREASED???Imm Gran - 0.4 %???Abs. Imm Gran - 0.1 k/mm3 Cocaine Urine Screen (06/12/2024) ???Cocaine Metabolite Screen, Urine - POSITIVE COVID-19 (2019 Novel Coronavirus) PCR (06/12/2024) ???COVID-19 PCR Specimen Source - NASAL???COVID-19 PCR Result - NEGATIVE HOLD GREEN TUBE (06/12/2024) ???Hold Green Top - SPECIMEN DISCARDED AFTER 1 WEEK Hold Red Top Tube (06/12/2024) ???Hold Red Top - SPECIMEN DISCARDED AFTER 1 WEEK Lactic Acid Level (06/12/2024) ???Lactate - 2.3 mmol/L Magnesium Level (06/15/2024) ???Magnesium - 2.1 mg/dL Opiate Screen Urine (06/12/2024) ???Opiate Screen, Urine - NONE DETECTED Phosphorus Level (06/15/2024) ???Phosphorus - 4.0 mg/dL PT (INR) (06/12/2024) ???INR - 1.0???Protime (PT) - 10.4 seconds PTT (06/12/2024) ???APTT - 24.3 seconds Type and Screen (06/12/2024) ???Blood Type - A Positive???Antibody Screen - Negative You will be contacted within 72 hours with your results. Allergies (NKA means No Known Allergies) NKA No Known Medication Allergies Problems Active Problems??(2) PCP (phencyclidine) abuse?? Quanttiferon ?? positive?? Education Materials Below is the list of Educational Leaflet Providered with your Discharge Instructions. [employer] Ignite Patient Education - Head Trauma (Traumatic Brain Injury)?? Valuables and Belongings I fully understand and agree that [facility] accepts no responsibility for all my personal property including clothing, toilet articles, radios, jewelry, dentures, hearing aids, rings, money, or any other property that is in my possession or is brought to me after admission. I understand certain valuables may be placed in a hospital safe for a short period of time. I understand that the hospital is not liable for loss or damage due to accident, fire, or other natural occurrence while said property is in the safe. I accept full responsibility for any personal property that I keep with me, and will not hold the hospital responsible in case of loss or disappearance. I acknowledge that i have been encouraged to send valuables and belongings home. ?? Review of Valuable and Belonging List: With patient, With witness Date for Pt to Sign Valuables/Belongings: 06/13/24 19:03:00 ?? Other Discharge Information ? Pulmonary Rehab Status?? Pulmonary Rehab Discharge Status?? Respiratory Rate: 16 br/min ? Common Emergency Awareness Tips IS IT A STROKE? Act FAST and Check for these signs: FACE Does the face look uneven? ARM Does one arm drift down? SPEECH Does their speech sound strange? TIME Call at any sign of stroke ?? Heart Attack Signs Chest discomfort: Most heart attacks involve discomfort in the center of the chest and lasts more than a few minutes, or goes away and comes back. It can feel like uncomfortable pressure, squeezing, fullness or pain. Discomfort in upper body: Symptoms can include pain or discomfort in one or both arms, back, neck, jaw or stomach. Shortness of breath: With or without discomfort. Other signs: Breaking out in a cold sweat, nausea, or lightheaded. Remember, MINUTES DO MATTER. If you experience any of these heart attack warning signs, call to get immediate medical attention! ?? Smoking can increase your chances of developing chronic health problems and can cause harmful effects to other family members in your house. If you smoke, you are strongly encouraged to quit. Please call [facility] Link at [phone] or [phone] ([phone]) or log in to [email or web address] for referrals to smoking cessation programs. ?? 903 Suicide & Crisis Lifeline is available 05/06 if you or someone you know needs to find a reason to keep living. By calling 248 you'll be connected to a skilled, trained counselor at a crisis center in your area. INPATIENT DISCHARGE INSTRUCTIONS SIGNATURE PAGE JUANIS NGUYEN Location:[facility] Registration Date and Time:06/12/2024 14:25 EDT Primary Care Physician: Not on Staff, PCP Attending Physician: Anne VELEZ, Daily Guerrero, I JUANIS NGUYEN, have received the above patient education materials/instructions and have verbalized understanding. If ambulance or transport services are being used I further acknowledge being given a choice of service. ?? If you need to contact me, please call me at this number: . Patient/Chicken Dresser Name: Patient/Chicken Dresser Signature: Relationship to Patient: Witness Name/Signature: Date: * Verona Viveros RN: PERFORM Event Display: Patient Education Leaflets Authored Date: [id number] Concussion ?? Concussion - Video A concussion is an injury to the brain caused by a blow to the head, or by striking the head on another object. It may result in loss of consciousness or confusion, but the effects usually resolve yara few hours or days. This video explains what happens during a concussion, how it should be treated, and what preventive steps to take. To view the video go to this web address: https://bit.ly/3x0wYIM Or, scan this QR code with your smart phone Last Reviewed Date: 2020 ?? [employer]. All rights reserved. This information is not intended as a substitute for professional medical care. Always follow your healthcare professional's instructions. ?? * Verona Viveros RN: PERFORM Event Display: Patient Education Leaflets Authored Date: [id number] Concussions: A Toolkit for Parents ?? Concussions: A Toolkit for Parents - Video Days after suffering a concussion, Lolita Fournier's son was still getting severe headaches. Finally, she took him to the Concussion Clinic, where she learned the real guidelines for handling concussions. To view the video go to this web address: https://bit.ly/3zRnTS1 Or, scan this QR code with your smart phone ?? [employer]. All rights reserved. This information is not intended as a substitute for professional medical care. Always follow your healthcare professional's instructions. ?? * Verona Viveros RN: PERFORM Event Display: Patient Education Leaflets Authored Date: [id number] Facial Fracture ?? [id number] Facial Fracture?? You have a broken bone, or fracture, in your face. This may be a small crack in the bone. Or it maybe a major break, with the bone moved out of place. Depending on where the break is, you may have pain when you chew. You may also have nasal congestion, sinus pain, and nose bleeding.?? During the first 24 hours after injury, you may have swelling or bruising where the break is, or around your eyes. A blow to the face strong enough to cause a broken bone may also cause a??concussion??or more serious brain injury. Home care ??? Use an ice pack on the injured area for??no more than 15 to??20 minutes at a time. [place] every 1 to 2 hours for the first??24 to 48 hours. Then use the ice pack as needed to ease painand swelling. To make an ice pack, put ice cubes in a plastic??bag that seals at the top. Wrap the bag in a??clean, thin??towel or cloth. Never put ice or an ice pack directly on the skin. ??? You may use??kfmd-fpt-kpdbyly pain medicine??to control pain, unless another pain medicine was prescribed.Talk with your provider before using this medicine if you have chronic liver or kidney disease or ahistory of gastrointestinal ulcers or take a blood thinner. ??? Sleep with your head raised on 2 ormore pillows to ease swelling. ??? If you have facial pain when eating, don???t eat crunchy or chewy foods. A softer diet will be more comfortable for the first 2 to 3 weeks. ??? If you were given antibiotics to prevent an infection, take them as directed until you have finished the prescription. ??? If your nose bleeds, sit up and lean forward. Pinch your nostrils together for??10 to 15 minutes.??If the bleeding doesn???t stop, keep pinching your nostrils and call your healthcare provider.??Don???t blow your nose for 12 hours after the bleeding stops. This will allow a strong blood clot to form. Don???t pick your nose. ?? Special note on concussions If you had any symptoms of a concussion today, don???t return to sports or any activity that could result in another head injury. These are symptoms of a concussion: ??? Nausea ??? Vomiting ??? Dizziness ??? Blurry vision ??? Confusion or slurred speech ??? Headache ??? Memory loss ??? Loss of consciousness Wait until all of your symptoms are gone and your provider says it???s OK to resume your activity. Having a second head injury before you fully recover from the first one can lead to serious brain injury. ?? Follow-up care Follow up with your healthcare provider in 1 week, or as advised. This is to make sure the bone is healing as it should. If you had X-rays or CT scans taken,??you'll be told of any new findings that may affect your care. ?? When to get medical advice Call your healthcare provider right away??if any of these occur: ??? Swelling or pain in your face that gets worse ??? Redness, warmth, or pus draining from the injured area ??? Fever of 100.4??F (38??C) or higher, or as directed by your healthcare provider ??? Chills ??? Double vision ??? Nausea ?? Call 911 Call 911 if you have: ??? Repeated vomiting ??? Severe headache or dizziness ??? Headache or dizziness that gets worse ??? Abnormal drowsiness, or you're??unable to wake up as usual ??? Confusion or change in behavior or speech ??? Convulsion, or seizure? Last Reviewed Date: 2021 ?? 1043-0541 [employer]. All rights reserved. This information is not intended as a substitute for professional medical care. Always follow your healthcare professional's instructions. ?? Patient Care team information Care Team Personnel Name: Sharron Ashley RN Position: [facility] RN Member Role: Primary Care Nurse Name: Maria Isabel Crandall RN Position: [facility] RN Member Role: Primary Care Nurse Name: Franklin Weinberg RN Position: S RN Member Role: Primary Care Nurse Name: Karolina Celaya Position: [facility] Associate Professional Member Role: Lifetime Consulting Provider Address: Address: [address] [place] [address] Trauma Services [address] Name: Not on Staff, PCP Position: [facility] Physician (General Medicine) Member Role: PCP Name: Domingo Bhagat RN Position: S RN Member Role: Primary Care Nurse Name: Laila Kidd RN Position: S RN Member Role: Primary Care Nurse Name: Giovanna Jensen RN Position: [facility] RN Member Role: Primary Care Nurse Care Team Related Persons Name: LOLITA PELLETIER Address: home [address] [place] [address] Name: MALISSA NGUYEN Address: home [address] [place] [address] Name: AAKASH NGUYEN Address: home [address] [place] [address] Name: ANDREW PATEL Address: [place] [address]
--- OUTSIDE RECORDS SUMMARY | 2024-07-18 01:59 | XMS_ITS | Continuity of Care Document ---
Author Organization [facility] Address [address] [place] [address]- Care Team Providers Care Truck Loader And Unloader Name Role Phone Uriah VELEZ, Dru Wright Primary Care Physi juju Encounter [facility] [place] [place] ACCT R [id number] Date(s): 06/10/24 - 07/10/24 [facility] [address] [place] [address]- [place] Allergies, Adverse Reactions, Alerts No Known Allergies Medications cetirizine 10 mg oral tablet 1 tablet [...] Daily in AM, Maintenance, 06/12/24 17:47:00 EDT, [place], Partial fill upon patient request if the [...] 0 Refills, Maintenance, 06/17/24 12:44:00 EDT, Tablet, [facility], Partial fill upon patient request if the prescription is for a scheduleII opioid drug., 178, cm, 06/15/24 8:46:00 EDT, [place]i... 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 Care team information Care Team Personnel Name: Dion ARNOLD, Sharron Position: S RN Member Role: Primary Care Nurse Name: Maria Isabel Crandall RN Position: [facility] RN Member Role: Primary Care Nurse Name: Uriah VELEZ, Dru Wright Position: [facility] Outreach Member Role: PCP Address: Address: [address] [place] [address]- Name: Franklin Weinberg RN Position: S RN Member Role: Primary Care Nurse Name: Karolina Celaya Position: [facility] Associate Professional Member Role: Lifetime Consulting Provider Address: Address: [address] [place] [address] [place] [address]- Name: Domingo Bhagat RN Position: [facility] RN Member Role: Primary Care Nurse Name: Laila Kidd RN Position: [facility] RN Member Role: Primary Care Nurse Name: Giovanna Jensen RN Position: [facility] RN Member Role: Primary Care Nurse Care Team Related Persons Name: PELLETIERRACHANA MEZAINA Address: home [address] [place] [address] Name: MALISSA HENRY Address: home [address] [place] [address] Name: AAKASH HENRY Address: home [address] [place] [address] Name: ANDREW PATEL Address: [place] [address]
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
[2024-07-18 02:36] VITALS: BP 160/109; PULSE 89; RESP 17; TEMP 36.7; O2SAT 98
--- NOTE | 2024-07-18 03:39 | ED_ITS ---
HPI - General Adult General Chief complaint: General Medical Stated complaint: ear problem + crisis Time Seen by Provider: 07/18/24 03:21 Source: patient Mode of arrival: ambulatory Limitations: no limitations History of Present Illness ED Provider: DR. Santiago HPI narrative: 33-year-old male came in for evaluation of left ear pain for 1 month and ringing in the left ear. Patient was seen on 07/12 and 07/16 and was diagnosed with otitis externa and otitis media was prescribed ofloxacin and amoxicillin with no relief of his symptoms patient missed an appointment with ENT last week. Patient currently is homeless and compliant with medication is in question. Related Data Previous Rx's ?Medication ?Instructions ?Recorded albuterol sulfate 90 mcg/actuation 2 inh inhalation Q4-6H PRN 04/15/22 breath activated powder inhaler shortness of breath or wheezing #1 ea azithromycin 250 mg tablet See Rx Instructions PO .COMPLEX #6 04/15/22 tabs prednisone 20 mg tablet 20 mg PO DAILY 5 days #5 tabs 04/15/22 diphenhydramine HCl 25 mg capsule 25 mg PO TID PRN allergic reaction 03/10/24 (Benadryl) 7 days #21 caps famotidine 20 mg tablet (Pepcid) 20 mg PO BID 7 days #14 tabs 03/10/24 hydrocortisone 1 % topical cream 1 appl topical BID PRN rash 2 03/10/24 weeks #28.4 grams prednisone 20 mg tablet 40 mg (2 x 20 mg) PO DAILY 5 days 03/10/24 #10 tabs amoxicillin 875 mg-potassium 1 tab PO Q12H #14 tabs 05/26/24 clavulanate 125 mg tablet tramadol 50 mg tablet 50 mg PO Q6H PRN pain #10 tabs 05/26/24 amoxicillin 875 mg-potassium 1 tab PO BID 7 days #14 tabs 07/12/24 clavulanate 125 mg tablet ofloxacin 0.3 % ear drops 10 drp otic (ears) DAILY 7 days #5 07/16/24 mL azithromycin 250 mg tablet See Rx Instructions PO .COMPLEX #6 07/18/24 (Zithromax Z-Victoriano) tabs ciprofloxacin HCl 0.2 % ear drops 5 drp otic (ear) right BID 7 days 07/18/24 in a dropperette #14 ea Allergies Allergy/AdvReac Type Severity Reaction Status Date / Time pollen extracts Allergy Rash Verified 07/18/24 00:33 Review of Systems Review of Systems: All other systems are reviewed and are negative Constitutional: Reports as per HPI and Reports no additional constitutional complaints Eyes: Reports as per HPI and Reports no additional eye complaints Reports system reviewed and no additional complaints, except as documented Cardiovascular: Reports as per HPI and Reports no additional cardiovascular complaints Respiratory: Reports as per HPI and Reports no additional respiratory complaints Gastrointestinal: Reports as per HPI and Reports no additional gastrointestinal complaints Genitourinary: Reports no additional female genitourinary complaints Musculoskeletal: Reports no additional musculoskeletal complaints Skin/Breast: Reports system reviewed and no additional complaints, except as docu Psychiatric: Reports no additional psychiatric complaints Endocrine: Reports no additional endocrine complaints Hematologic/Lymphatic: Reports no additional hematologic/lymphatic complaints Allergic/Immunologic: Reports no additional allergic/immunologic complaints Reports system reviewed and no additional complaints, except as documented and Reports Abnormal speech present [facility] Social History Social History Alcohol intake: current Alcohol intake frequency: 0-2 drinks per day Smoked in Last 30 Days: Yes Use of substances other than those prescribed or required for medical reasons: Yes Substance Use Type: Amphetamines and Crack/Cocaine Substance Use Frequency: Chronic Longstanding Advance Directives: No Advance Directives Information Provided: Yes Do you have a plan to hurt others: No Plan Physical Exam ED Vital Signs: Vital Signs - 24 hr 07/18/24 00:32 07/18/24 02:36 Temperature 98.3 F 98.1 F Pulse Rate 106 H 89 Respiratory Rate 20 17 Blood Pressure 156/110 H 160/109 H Pulse Oximetry 98 98 Oxygen Delivery Method Room Air Room Air BMI result Body Mass Index 28.1 Vital signs have been reviewed and appear to be correct. Blood pressure elevated. Heart rate normal. Respiratory rate normal. Temperature normal. Oxygen saturation normal. Appearance: Alert. Oriented X3. No acute distress. Head: Normal external exam. Normocephalic. Atraumatic. No Bullock signs noted. No raccoon eyes noted Eyes: PERRLA. EOMI. Conjunctiva and sclera normal. Eyelids normal. ENT: Left TM erythematous, tender to touch. No mastoid process tenderness or redness or hotness. Pharynx normal. Uvula midline. Moist mucous membranes. No trismus noted. No drooling noted. No muffled voice noted. Neck: Normal inspection. Neck supple. FROM. No adenopathy. Thyroid Normal. No meningeal signs. No neck mass noted. CVS: Normal heart rate and rhythm. Heart sound normal. No murmurs noted. Pulses normal throughout. Respiratory: No respiratory distress. Painless inspiration. Breath sounds normal. No wheezes/rales/rhonchi noted. Chest nontender. No accessory muscle usage noted or decreased air movement noted. Abdomen: Soft and nontender. Bowel sounds normal in all 4 quadrants. No distention noted. No organomegaly noted. No visible injury noted. Back: No CVA tenderness. Full range of motion noted. Skin: Skin warm and dry. Normal skin color. Normal skin turgor. No rashes/lesions/lacerations noted. Extremities: No lower extremity edema. Extremities exhibit normal range of motion. Extremities nontender. Neuro: Oriented X 3. Cranial nerve exam: II-XII are grossly intact No motor deficit. No sensory deficit. Reflexes normal. Course Reevaluation(s) Reevaluation #1: Combination of otitis externa and otitis media patient finished course of amoxicillin without relief of symptoms will start on Z-Victoriano and continue with ofloxacin ear drops and follow-up with ENT. Time: 03:42 Medical Decision Making Differential Diagnosis Differential Diagnoses: The differential diagnosis associated with the presentation includes (Otitis media, otitis externa, cerumen impaction, mastoiditis.) Discharge Plan Discharge Clinical Impression: Acute left otitis media, Acute otitis externa of left ear Patient Disposition: Home, Self-Care Instructions: Ear Infection (ED) Prescriptions: New ciprofloxacin HCl 0.2 % dropperette 5 drp otic (ear) right BID 7 Days Qty: 14 0RF azithromycin [Zithromax Z-Victoriano] 250 mg tablet See Rx Instructions .ROUTE .COMPLEX Qty: 6 0RF Rx Instructions: For 250 mg dose pack: take 500 mg today (day 1), then 250 mg for 4 days (days 2-5) No Action albuterol sulfate 90 mcg/actuation aerosol powdr breath activated 2 inh inhalation Q4-6H PRN (Reason: shortness of breath or wheezing) Qty: 1 0RF azithromycin 250 mg tablet See Rx Instructions .ROUTE .COMPLEX Qty: 6 0RF Rx Instructions: For 250 mg dose pack: take 500 mg today (day 1), then 250 mg for 4 days (days 2-5) prednisone 20 mg tablet 20 mg PO DAILY 5 Days Qty: 5 0RF diphenhydramine HCl [Benadryl] 25 mg capsule 25 mg PO TID PRN (Reason: allergic reaction) 7 Days Qty: 21 0RF prednisone 20 mg tablet 40 mg PO DAILY 5 Days Qty: 10 0RF famotidine [Pepcid] 20 mg tablet 20 mg PO BID 7 Days Qty: 14 0RF hydrocortisone 1 % cream 1 appl topical BID PRN (Reason: rash) 14 Days Qty: 28.4 0RF tramadol 50 mg tablet 50 mg PO Q6H PRN (Reason: pain) Qty: 10 0RF amoxicillin-pot clavulanate 875-125 mg tablet 1 tab PO Q12H Qty: 14 0RF amoxicillin-pot clavulanate 875-125 mg tablet 1 tab PO BID 7 Days Qty: 14 0RF ofloxacin 0.3 % drops 10 drp otic (ears) DAILY 7 Days Qty: 5 0RF Referrals: Dru Kruse MD [Primary Care Provider] - Samy Gibson [Physician] - Print Language: Welsh
[2024-07-18 05:19] VITALS: BP 160/109; PULSE 89; RESP 17; TEMP 36.7; O2SAT 98
== END 2024-07-18 05:19 | disposition home or self-care (01) ==
PROVIDERS: Emergency Provider Emergency Medicine; PCP Internal Medicine
DX: H60.502 Unspecified acute noninfective otitis externa, left ear (principal); H66.92 Otitis media, unspecified, left ear; H92.02 Otalgia, left ear
CPT/HCPCS: 70450; 99284

== ENCOUNTER 2024-12-03 11:38 | Outpatient (REF) | payer MEDICAID, SELFPAY ==
[2024-12-03 13:46] LABS: MANUAL DIFF FLAG NO
[2024-12-03 13:54] LABS: Basophils Absolute Auto 0.1 X10*3/uL (0.0-0.2); Basophils Percent Auto 0.6 % (0-2); Eosinophils Absolute Auto 0.8 X10*3/uL (0.0-0.4); Eosinophils Percent Auto 8.9 % (0-4); Hematocrit 44.3 % (42.0-52.0); Hemoglobin 14.5 g/dl (14.0-18.0); Imm Gran Abs Auto 0.03 X10*3/uL (0.00-0.03); Imm Gran Pct Auto 0.3 % (0.0-0.4); Lymphocytes Absolute Auto 3.7 X10*3/uL (1.2-4.9); Lymphocytes Percent Auto 41.4 % (20-40); Mean Corpuscular HGB Conc 32.7 g/dl (31.0-36.0); Mean Corpuscular Hemoglobin 29.5 pg (27.0-33.0); Mean Corpuscular Volume 90.2 fL (80.0-98.0); Mean Platelet Volume 10.4 fL (9.4-12.4); Monocytes Absolute Auto 0.8 X10*3/uL (0.1-1.2); Monocytes Percent Auto 9.1 % (2-11); Neutrophils Absolute Auto 3.6 x10*3/uL (2.0-8.3); Neutrophils Percent Auto 39.7 % (45-73); Platelet Count 585 X10*3/uL (160-400); Red Blood Count 4.91 X10*6/uL (4.60-5.80); Red Cell Distribution Width 14.4 % (11.0-16.0); White Blood Count 8.9 X10*3/uL (4.8-10.8)
[2024-12-03 14:16] LABS: Alanine Aminotransferase 131 U/L (0-40); Albumin Level 4.5 g/dL (3.5-5.0); Alkaline Phosphatase 96 U/L (39-117); Anion Gap 11 (12-20); Aspartate Amino Transferase 84 U/L (5-37); Bilirubin Total 0.4 mg/dL (0.0-1.0); Blood Urea Nitrogen 10 mg/dL (9-16); Calcium 9.4 mg/dL (8.4-10.2); Carbon Dioxide 24 mmol/L (22-29); Chloride 111 mmol/L (96-108); Cholesterol 199 mg/dL (<200); Estimated Glomerular Filt Rate > 60; Glucose Random 117 mg/dL (60-115); HDL Cholesterol 33 mg/dL (>40); LDL Cholesterol Calculated 149 mg/dL (<100); Sodium 142 mmol/L (135-145); Total Protein 8.3 g/dL (6.5-8.0); Triglycerides 86 mg/dL (<150)
[2024-12-03 14:56] LABS: CT PCR NOT DETECTED (Not Detect.); NG PCR NOT DETECTED (Not Detect.)
[2024-12-03 16:23] LABS: Reflex LDLD? No
[2024-12-04 08:26] LABS: Hepatitis A Antibody IgG REACTIVE (Nonreactive); ~Hepatitis A Antibody IgG 1.55 S/CO (0.00-0.99)
[2024-12-04 08:36] LABS: HBS Num1 499.58 mIU/mL (0-7.99); HBc Num1 0.11 S/CO (0.00-0.79); HBsAGNum1 0.39 S/CO (0.00-0.99); Hepatitis B Core Antibody Nonreactive (Nonreactive); Hepatitis B Surface Antigen Negative (Negative); ~HepC Num1 0.11 S/CO (0.00-0.79); ~Hepatitis B Surface Antibody REACTIVE (Nonreactive); ~Hepatitis C Antibody Nonreactive (Nonreactive)
[2024-12-04 19:28] LABS: HIV RNA PCR Qn Copies 41 copies/mL (NOT DETECTED); HIV RNA PCR Qn Log Copies 1.61 (NOT DETECTED)
[2024-12-05 18:43] LABS: Absolute CD3 Count 2876 cells/uL (840-3060); Absolute CD4 Count 1694 cells/uL (490-1740); Absolute CD8 Count 1213 cells/uL (180-1170); Absolute Lymphocytes 4066 cells/uL (850-3900); Percent CD3 Cells 71 % (57-85); Percent CD4 Cells 42 % (30-61); Percent CD8 Cells 30 % (12-42)
[2024-12-06 13:08] LABS: TS Negative Control Passed; TS Panel A 0; TS Panel B 0; TS Positive Control Passed; TSpotTB Negative (Negative)
== END 2024-12-03 11:39 | disposition home or self-care (01) ==
LOC: HO.HHCL 11:38
PROVIDERS: Visit Provider Internal Medicine
DX: B20 Human immunodeficiency virus [HIV] disease (principal)
CPT/HCPCS: 80053; 80061; 85025; 86359; 86360; 86481; 86704; 86706; 86708; 86803; 87340; 87491; 87536; 87591

== ENCOUNTER 2025-01-09 13:36 | Outpatient (REF) | payer MEDICAID, SELFPAY ==
--- OUTSIDE RECORDS SUMMARY | 2025-01-09 16:20 | XMS_ITS | Clinical Summary ---
Author Organization [facility] Address [address] [place] [address] Care Team Providers Care Stack Supervisor Name Role Phone Unavailable Primary Care Provider Unavailabl e Social History Tobacco Use Types Packs/Day Years Used Date Smoking Tobacco: Never Assessed Sex and Gender Information Value Date Recorded Sex Assigned at Not on file Legal Sex Male 2:13 PM EST Gender Identity Not on file Sexual Orientation Not on file Plan of Treatment Health Maintenance Due Date Last Done Comments DTaP,Tdap,and Td Vaccines (1 - Tdap) 2011 Hepatitis B Vaccines (1 of 3 - 19+ 3-dose series) 2011 COVID-19 Vaccine (2023-2 5 season) 2024 Influenza Vaccine (#1) 2024 HIB Vaccines Aged Out No longer eligi ble based on patient's age to complete this topic HPV Vaccines Aged Out No longer eligi ble based on patient's age to complete this topic Hepatitis A Vaccines Aged Out No long er eligible based on patient's age to complete this topic IPV Vaccines Aged Out No longer eligi ble based on patient's age to complete this topic MMR Vaccines Aged Out No longer eligi ble based on patient's age to complete this topic Meningococcal ACWY Vaccine Aged Out N o longer eligible based on patient's age to complete this topic Meningococcal B Vacine Aged Out No lo nger eligible based on patient's age to complete this topic Pneumococcal Vaccine: Pediat rics (0 to 5 Years) and At-Risk Patients (6 to 64 Years) Aged Out No longer eligible b ased on patient's age to complete this topic RSV Immunization Patients Un nory 20 months Aged Out No longer eligible b ased on patient's age to complete this topic Varicella Vaccines Aged Out No longer eligible based on patient's age to complete this topic
== END 2025-01-09 13:37 | disposition home or self-care (01) ==
LOC: HO.LNP 13:36
PROVIDERS: Visit Provider Internal Medicine
DX: B20 Human immunodeficiency virus [HIV] disease (principal)
CPT/HCPCS: 87491; 87591

== ENCOUNTER 2025-01-09 13:39 | Outpatient (REF) | payer MEDICAID, SELFPAY ==
[2025-01-10 11:01] LABS: CT PCR NOT DETECTED (Not Detect.); NG PCR NOT DETECTED (Not Detect.)
[2025-01-13 04:39] LABS: C. Trachomatis RNA TMA, Throat NOT DETECTED; N. gonorrhoeae RNA TMA, Throat NOT DETECTED
== END 2025-01-09 13:40 | disposition home or self-care (01) ==
LOC: HO.LNP 13:39
PROVIDERS: Visit Provider Internal Medicine
DX: B20 Human immunodeficiency virus [HIV] disease (principal)
CPT/HCPCS: 87491; 87591

== ENCOUNTER 2025-04-08 21:57 | Emergency (ER) | payer MEDICAID, SELFPAY ==
[2025-04-08 22:04] VITALS: BP 150/101; PULSE 94; RESP 16; TEMP 37; O2SAT 97; BMI 32.5
--- OUTSIDE RECORDS SUMMARY | 2025-04-08 23:19 | XMS_ITS | Clinical Summary ---
Author Organization [facility] ity Address [address] [place] [address] Care Team Providers Care Management Consultant Name Role Phone Unavailable Primary Care Provider [...] Vaccine (2023-2 5 season) 2024 Influenza Vaccine (Season Ended) 2025 HIB Vaccines Aged Out No longer eligi [...] age to complete this topic Meningococcal B Vaccine Aged Out No l onger eligible based on patient's age to complete [...]
== END 2025-04-09 01:49 | disposition left against medical advice (07) ==
PROVIDERS: Emergency Provider Emergency Medicine; PCP Internal Medicine
DX: M79.601 Pain in right arm (principal); M25.561 Pain in right knee
CPT/HCPCS: 99281

== ENCOUNTER 2025-04-22 03:52 | Emergency (ER) | payer MEDICAID, SELFPAY ==
[2025-04-22 04:09] VITALS: BP 133/87; PULSE 100; RESP 20; TEMP 37.6; O2SAT 97; BMI 32.5
[2025-04-22 04:40] LABS: IDNOW Serial# 58CA691E; Strep A Nucleic Acid Positive (Negative)
[2025-04-22] MEDS: Acetaminophen 325 MG TABLET 650 MG PO (04:53)
[2025-04-22 04:58] LABS: Influenza A PCR NEGATIVE (Negative); Influenza B PCR NEGATIVE (Negative); Resp Syncy Virus RNA Qual PCR NEGATIVE (Negative); SARS COV2 PCR INHOUSE NEGATIVE (Negative)
[2025-04-22] MEDS: Amoxicillin 500 MG CAPSULE PO (05:10)
[2025-04-22] MEDS: Ibuprofen Oral Susp 200 MG/10 ML ORAL.SUSP 600 MG PO (05:16)
[2025-04-22] MEDS: dexAMETHasone sod phosphate 10 MG/ML VIAL PO (05:16)
--- NOTE | 2025-04-22 05:16 | ED_ITS ---
HPI - URI/Sore Throat General Chief Complaint: Upper Respiratory Symptoms Stated Complaint: throat pain Time Seen by Provider: 04/22/25 05:06 Source: patient and old records reviewed Mode of arrival: ambulatory Limitations: no limitations History of Present Illness ED Provider: NACHO CAVAZOS Narrative: 34 yo male with PMH of asthma who has had a sore throat since yesterday. No dyspnea, no fevers, no n/v/d. He has no sick contacts. No OTC medications yet MD elicited complaint: sore throat Onset (ago): day(s) (1) Consistency: constant Severity: moderate Description of mucous: clear Able to tolerate fluids by mouth: Yes Exacerbating factors: swallowing Relieving factors: nothing Associated symptoms: denies other symptoms Treatments prior to arrival: none Related Data Previous Rx's ?Medication ?Instructions ?Recorded albuterol sulfate 90 mcg/actuation 2 inh inhalation Q4-6H PRN 04/15/22 breath activated powder inhaler shortness of breath or wheezing #1 ea azithromycin 250 mg tablet See Rx Instructions PO .COMPLEX #6 04/15/22 tabs prednisone 20 mg tablet 20 mg PO DAILY 5 days #5 tabs 04/15/22 diphenhydramine HCl 25 mg capsule 25 mg PO TID PRN allergic reaction 03/10/24 (Benadryl) 7 days #21 caps famotidine 20 mg tablet (Pepcid) 20 mg PO BID 7 days #14 tabs 03/10/24 hydrocortisone 1 % topical cream 1 appl topical BID PRN rash 2 03/10/24 weeks #28.4 grams prednisone 20 mg tablet 40 mg (2 x 20 mg) PO DAILY 5 days 03/10/24 #10 tabs amoxicillin 875 mg-potassium 1 tab PO Q12H #14 tabs 05/26/24 clavulanate 125 mg tablet tramadol 50 mg tablet 50 mg PO Q6H PRN pain #10 tabs 05/26/24 amoxicillin 875 mg-potassium 1 tab PO BID 7 days #14 tabs 07/12/24 clavulanate 125 mg tablet ofloxacin 0.3 % ear drops 10 drp otic (ears) DAILY 7 days #5 07/16/24 mL azithromycin 250 mg tablet See Rx Instructions PO .COMPLEX #6 07/18/24 (Zithromax Z-Victoriano) tabs ciprofloxacin HCl 0.2 % ear drops 5 drp otic (ear) right BID 7 days 07/18/24 in a dropperette #14 ea amoxicillin 500 mg tablet 500 mg PO BID #19 tabs 04/22/25 Allergies Allergy/AdvReac Type Severity Reaction Status Date / Time pollen extracts Allergy Rash Verified 04/22/25 04:12 Review of Systems Review of Systems: Constitutional : No Fever, No Chills, No Fatigue ENT/Mouth : pos sore throat, No Rhinorrhea Eyes: No Eye Pain, No Swelling, No Redness Cardiovascular : No Chest Pain, No SOB, No Dyspnea on Exertion Respiratory : No Cough, No Sputum Gastrointestinal : No Nausea, No Vomiting, No Diarrhea, No abdominal Pain Musculoskeletal : No joint pain, No Myalgias, No Joint Swelling Skin : No Skin Lesions, No rash Neuro : No Weakness, No Numbness, No Dizziness All other systems reviewed and are negative [facility], [facility] Past Medical History Attestation statement: The following information was validated with the patient. Source: old records reviewed Medical History (Updated 04/22/25 @ 05:37 by Bisi Mei DO) Asthma Social History Social History Alcohol intake: current Alcohol intake frequency: 0-2 drinks per day Substance Use Type: Amphetamines and Crack/Cocaine Advance Directives: No Advance Directives Information Provided: No Physical Exam Vital Signs: Vital Signs: Last Vital Signs Temp 99.6 F 04/22/25 04:09 Pulse 100 04/22/25 04:09 Resp 20 04/22/25 04:09 BP 133/87 04/22/25 04:09 Pulse Ox 97 04/22/25 04:09 O2 Del Method Room Air 04/22/25 04:09 BMI result Body Mass Index 32.5 Appearance: Alert. Oriented X3. No acute distress. Eyes: Pupils equal, round and reactive to light. ENT: Pharynx with moderate generalized erythema and exudates, uvula midline no drooling Neck: Normal inspection. Neck supple. CVS: Normal heart rate and rhythm. Pulses normal. Respiratory: No respiratory distress. Breath sounds normal. Abdomen: Soft and nontender. Skin: Skin warm and dry. Normal skin color. Normal skin turgor. Extremities: No lower extremity edema. No calf ttp Neuro: Oriented X 3. No motor deficit. No sensory deficit. CN2-12 intact Medications Administered Discontinued Medications Generic Name Dose Route Start Last Admin Trade Name Rio PRN Reason Stop Dose Admin Acetaminophen 650 mg 04/22/25 04:52 04/22/25 04:53 Acetaminophen 325 Mg Tablet PO 04/22/25 04:53 650 mg ONCE ONE Administration Amoxicillin 500 mg 04/22/25 05:06 04/22/25 05:10 Amoxicillin 500 Mg Capsule PO 04/22/25 05:07 500 mg ONCE ONE Administration Dexamethasone Sodium Phosphate 10 mg 04/22/25 05:12 04/22/25 05:16 Dexamethasone Sod Phosphate 10 Mg/Ml Vial PO 04/22/25 05:13 10 mg ONCE ONE Administration Ibuprofen 600 mg 04/22/25 05:12 04/22/25 05:16 Ibuprofen Oral Susp 200 Mg/10 Ml Oral.Susp PO 04/22/25 05:13 600 mg ONCE ONE Administration Medical Decision Making Medical Decision Making [facility] Narrative: 34 yo male with PMH of asthma now here with 1 day of sore throat - 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 At this time will dose with dexa, motrin and start on amoxicilin if strep positive. Overall well appearing. Differential Diagnosis Differential Diagnoses: The differential diagnosis associated with the presentation includes viral syndrome, pharyngitis Admission/Observation Consideration of admission/observation: Escalation of care including admission/observation considered not toxic, stable for outpatient oral abx Lab Data [facility] Lab Attestation statement: I reviewed the patient's lab results. Labs: Lab Results 04/22/25 Range/Units 04:16 Influenza Type A (PCR) NEGATIVE (Negative) Influenza Type B (PCR) NEGATIVE (Negative) RSV RNA Qual (PCR) NEGATIVE (Negative) SARS-CoV-2 RNA (RT-PCR) NEGATIVE (Negative) S. pyogenes GrpA ROMA Positive A (Negative) External Record Review External record reviewed: Outpatient record Prescription Management I considered prescription management with: Antibiotic Discharge Plan Discharge Clinical Impression: Pharyngitis Qualifiers: Pharyngitis/tonsillitis etiology: streptococcus Qualified Code(s): J02.0 - Streptococcal pharyngitis Patient Disposition: Home, Self-Care Instructions: Strep Throat (ED) Additional Instructions: negative for covid, flu, rsv positive for strep throw away toothbrush in 24 hours return for any worsening symptoms or concerns finish all antibiotics Prescriptions: New amoxicillin 500 mg tablet 500 mg PO BID Qty: 19 0RF No Action albuterol sulfate 90 mcg/actuation aerosol powdr breath activated 2 inh inhalation Q4-6H PRN (Reason: shortness of breath or wheezing) Qty: 1 0RF azithromycin 250 mg tablet See Rx Instructions .ROUTE .COMPLEX Qty: 6 0RF Rx Instructions: For 250 mg dose pack: take 500 mg today (day 1), then 250 mg for 4 days (days 2-5) prednisone 20 mg tablet 20 mg PO DAILY 5 Days Qty: 5 0RF diphenhydramine HCl [Benadryl] 25 mg capsule 25 mg PO TID PRN (Reason: allergic reaction) 7 Days Qty: 21 0RF prednisone 20 mg tablet 40 mg PO DAILY 5 Days Qty: 10 0RF famotidine [Pepcid] 20 mg tablet 20 mg PO BID 7 Days Qty: 14 0RF hydrocortisone 1 % cream 1 appl topical BID PRN (Reason: rash) 14 Days Qty: 28.4 0RF tramadol 50 mg tablet 50 mg PO Q6H PRN (Reason: pain) Qty: 10 0RF amoxicillin-pot clavulanate 875-125 mg tablet 1 tab PO Q12H Qty: 14 0RF amoxicillin-pot clavulanate 875-125 mg tablet 1 tab PO BID 7 Days Qty: 14 0RF ofloxacin 0.3 % drops 10 drp otic (ears) DAILY 7 Days Qty: 5 0RF ciprofloxacin HCl 0.2 % dropperette 5 drp otic (ear) right BID 7 Days Qty: 14 0RF azithromycin [Zithromax Z-Victoriano] 250 mg tablet See Rx Instructions .ROUTE .COMPLEX Qty: 6 0RF Rx Instructions: For 250 mg dose pack: take 500 mg today (day 1), then 250 mg for 4 days (days 2-5) Print Language: Liberian
[2025-04-22 05:52] VITALS: BP 133/87; PULSE 100; RESP 20; TEMP 37.6; O2SAT 97
== END 2025-04-22 05:56 | disposition home or self-care (01) ==
PROVIDERS: Emergency Provider Emergency Medicine
DX: J02.0 Streptococcal pharyngitis (principal); Z03.818 Encounter for observation for suspected exposure to other biological agents ruled out
CPT/HCPCS: 0241U; 87651; 99283; J1100

== ENCOUNTER 2025-05-13 10:08 | Outpatient (REF) | payer MEDICAID, SELFPAY ==
--- OUTSIDE RECORDS SUMMARY | 2025-05-13 11:14 | XMS_ITS | Clinical Summary ---
[facility] Address [address] [place] [address] Care Team Providers Care Production Supv Name Role Phone Unavailable Primary Care Provider [...]
[2025-05-13 11:38] LABS: Hematocrit 40.0 % (42.0-52.0); Hemoglobin 13.0 g/dl (14.0-18.0); Imm Gran Abs Auto 0.05 X10*3/uL (0.00-0.03); Imm Gran Pct Auto 0.3 % (0.0-0.4); MANUAL DIFF FLAG SCAN; Mean Corpuscular HGB Conc 32.5 g/dl (31.0-36.0); Mean Corpuscular Hemoglobin 29.1 pg (27.0-33.0); Mean Corpuscular Volume 89.5 fL (80.0-98.0); NRBC Abs Auto 0.000 X10*3/uL (0.0-0.012); NRBC Pct Auto 0.0 /100WBC (0.0-0.2); Platelet Count 584 X10*3/uL (160-400); Red Blood Count 4.47 X10*6/uL (4.60-5.80); SCAN SMEAR FLAG 1; White Blood Count 14.8 X10*3/uL (4.8-10.8)
[2025-05-13 11:39] LABS: Lymphocytes Absolute Auto 6.1 X10*3/uL (1.2-4.9)
[2025-05-13 12:48] LABS: Syphilis Screen Nonreactive (Nonreactive)
[2025-05-14 21:59] LABS: HIV RNA PCR Qn Copies NOT DETECTED copies/mL (NOT DETECTED); HIV RNA PCR Qn Log Copies NOT DETECTED (NOT DETECTED)
[2025-05-19 01:33] LABS: Absolute CD3 Count 3940 cells/uL (840-3060); Absolute CD8 Count 1804 cells/uL (180-1170); Percent CD3 Cells 67 % (57-85); Percent CD8 Cells 31 % (12-42)
== END 2025-05-13 10:09 | disposition home or self-care (01) ==
LOC: HO.HHCL 10:08
PROVIDERS: PCP Internal Medicine; Visit Provider Internal Medicine
DX: B20 Human immunodeficiency virus [HIV] disease (principal)
CPT/HCPCS: 36415; 85025; 86359; 86360; 86780; 87536

== ENCOUNTER 2025-09-16 10:09 | Outpatient (REF) | payer MEDICAID, SELFPAY ==
--- OUTSIDE RECORDS SUMMARY | 2025-09-16 11:55 | XMS_ITS | Clinical Summary ---
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 Role Phone Unavailable Primary Care Provider [...] of 3 - 19+ 3-dose series) 2011 HPV Vaccines (1 - 3-dose SCD M series) 2019 Depression Screening 11/13/2024 COVID-19 Vaccine (1 - 2023-2 5 season) 2025 Influenza Vaccine (#1) 2025 RSV Immunization Adult Patie nts (1 - 1-dose 75+ series) 2067 HIB Vaccines Aged Out No longer eligi [...] 5 Years) and At-Risk Patients (6 to 49 Years) Aged Out No longer eligible b ased on patient's age to complete this topic RSV Immunization Patients Un nory 20 months Aged Out No longer eligible b ased on patient's age to complete this topic Varicella Vaccines Aged Out No longer eligible based on patient's age to complete this topic
[2025-09-16 12:22] LABS: Hematocrit 40.8 % (42.0-52.0); Hemoglobin 13.5 g/dl (14.0-18.0); Imm Gran Abs Auto 0.07 X10*3/uL (0.00-0.03); Imm Gran Pct Auto 0.4 % (0.0-0.4); MANUAL DIFF FLAG SCAN; Mean Corpuscular HGB Conc 33.1 g/dl (31.0-36.0); Mean Corpuscular Hemoglobin 28.4 pg (27.0-33.0); Mean Corpuscular Volume 85.9 fL (80.0-98.0); NRBC Abs Auto 0.000 X10*3/uL (0.0-0.012); NRBC Pct Auto 0.0 /100WBC (0.0-0.2); Platelet Count 532 X10*3/uL (160-400); Red Blood Count 4.75 X10*6/uL (4.60-5.80); SCAN SMEAR FLAG 1; White Blood Count 17.2 X10*3/uL (4.8-10.8)
[2025-09-16 12:23] LABS: Lymphocytes Absolute Auto 6.3 X10*3/uL (1.2-4.9)
[2025-09-16 12:37] LABS: Alanine Aminotransferase 106 U/L (0-40); Albumin Level 5.0 g/dL (3.5-5.0); Alkaline Phosphatase 79 U/L (39-117); Anion Gap 13 (12-20); Aspartate Amino Transferase 48 U/L (5-37); Blood Urea Nitrogen 13 mg/dL (9-16); Calcium 9.4 mg/dL (8.4-10.2); Carbon Dioxide 23 mmol/L (22-29); Chloride 108 mmol/L (96-108); Estimated Glomerular Filt Rate > 60; Potassium 3.5 mmol/L (3.3-5.1); Sodium 140 mmol/L (135-145); Total Protein 7.9 g/dL (6.5-8.0)
[2025-09-16 12:56] LABS: ~HepC Num1 0.13 S/CO (0.00-0.79); ~Hepatitis C Antibody Nonreactive (Nonreactive)
[2025-09-18 17:14] LABS: HIV RNA PCR Qn Copies NOT DETECTED copies/mL (NOT DETECTED); HIV RNA PCR Qn Log Copies NOT DETECTED (NOT DETECTED)
[2025-09-18 20:08] LABS: TS Negative Control Passed; TS Panel A 0; TS Panel B 2; TS Positive Control Passed; TSpotTB Negative (Negative)
[2025-09-21 17:48] LABS: Absolute CD3 Count 3616 cells/uL (840-3060); Absolute CD8 Count 1863 cells/uL (180-1170); Percent CD3 Cells 67 % (57-85); Percent CD8 Cells 34 % (12-42)
== END 2025-09-16 10:10 | disposition home or self-care (01) ==
LOC: HO.HHCL 10:09
PROVIDERS: PCP Internal Medicine; Visit Provider Internal Medicine
DX: Z21 Asymptomatic human immunodeficiency virus [HIV] infection status (principal); Z11.1 Encounter for screening for respiratory tuberculosis; Z11.59 Encounter for screening for other viral diseases
CPT/HCPCS: 36415; 80053; 85025; 86359; 86360; 86481; 86803; 87536